=== PATIENT | male | born 1970 | race Caucasian/White ===

== ENCOUNTER 2021-02-01 10:26 | Outpatient (CLI) | payer OTHER, SELFPAY | END 2021-02-01 10:27 | disposition home or self-care (01) | LOC: ANHCOVIDVC 10:26 | PROVIDERS: PCP Family Medicine | DX: Z23 Encounter for immunization (principal) | CPT/HCPCS: 0001A; 91300 ==

== ENCOUNTER 2021-02-22 10:25 | Outpatient (CLI) | payer OTHER, SELFPAY | END 2021-02-22 10:26 | LOC: ANHCOVIDVC 10:26 | PROVIDERS: PCP Family Medicine | DX: Z23 Encounter for immunization (principal) | CPT/HCPCS: 0002A; 91300 ==

== ENCOUNTER → 2021-03-31 13:32 | Outpatient (CLI) | payer OTHER, SELFPAY ==
--- NOTE | ~2021-03-31 | CT_ITS ---
EXAMINATION: CT abdomen pelvis w con DATE: 03/31/2021 13:57 INDICATION: Left abdominal pain. Weight loss. TECHNIQUE: Computed tomography (CT) of the abdomen and pelvis was performed with 100 mL Omnipaque 350 intravenous contrast. Automated exposure control and iterative reconstruction technique were employe d. The dose-length product was 230.21 mGy-cm. COMPARISON: CT abdomen 11/12/2014 FINDINGS: The visualized portions of the lung bases demonstrate minimal atelectasis. No pleural effus ion. The heart size is normal. No pericardial effusion. There are changes of fundoplication of the st omach. There are cysts in the liver measuring up to 5 mm. The gallbladder, spleen, pancreas, adrenal glands, and kidneys are normal. There are no dilated loops of bowel. The appendix is not visualized. There are no pathologically enlarged lymph nodes. There is no free intraperitoneal fluid. There is mo derate lumbar spondylosis. IMPRESSION: 1. No specific etiology for the patient's symptoms. Reviewed, dictated and finalized at location A.
== END ==
PROVIDERS: PCP Family Medicine; Visit Provider Physician Assistant
DX: R10.9 Unspecified abdominal pain (principal); R63.4 Abnormal weight loss
CPT/HCPCS: 74177; Q9967

== ENCOUNTER → 2021-04-10 12:58 | Outpatient (CLI) | payer OTHER, SELFPAY ==
--- NOTE | ~2021-04-10 | CT_ITS ---
EXAMINATION: CT soft tissue neck w con EXAM DATE: 04/10/2021 13:26 INDICATION: R63.4 - Abnormal weight loss, localized enlarged lymph nodes. Prior esophageal surgery. A bnormal weight loss. No known history of cancer. TECHNIQUE: Spiral CT of the neck was performed following intravenous injection of 75 mL Omnipaque 350 . Axial, coronal and sagittal images were reviewed. The dose-length product (DLP) for this examinat ion was 416.56 mGy-cm. The exposure was tailored according to patient size (auto mA exposure control ), and iterative reconstruction (ASIR) was used as additional dose reduction technique. There is no prior study for comparison. FINDINGS: The thyroid gland is unremarkable. The submandibular and parotid glands are symmetric. There is no cervical lymphadenopathy. There are no masses identified. The superior mediastinum is unremarkable. The airway is unremarkable. Parapharyngeal and pre-glottic fat planes are preserve d. Mild to moderate bilateral carotid bulb arterial sclerosis with no stenosis. The orbits are unr emarkable. Visualized sinuses and mastoid air cells are well aerated. Lung apices are clear. onl y mild cervical spondylosis. IMPRESSION: No cervical lymphadenopathy or mass. Reviewed, dictated and finalized at location B.
== END ==
PROVIDERS: PCP Family Medicine; Visit Provider Physician Assistant
DX: R59.0 Localized enlarged lymph nodes (principal); R63.4 Abnormal weight loss
CPT/HCPCS: 70491; Q9967

== ENCOUNTER 2021-10-13 00:19 | Day surgery (SDC) | payer OTHER, SELFPAY ==
[2021-10-04 13:49] VITALS: BMI 22.1
--- NOTE | 2021-10-12 13:43 | PM.HPGS ---
History of Present Illness History of Present Illness Consent: Risks, benefits, and alternatives have been discussed and questions answered. Patient agrees to proceed with procedure. Chief complaint: neoplasm screening Narrative: Vinicius Fernandez is a 51 year old male referred for colon cancer screening Review of Systems Review of Systems: All systems reviewed & are unremarkable except as noted in HPI and below PMFSH Family History Family History Mother Family history of malignant neoplasm of breast in first degree relative Social History Social History Smoking status: Never smoker Second hand tobacco smoke exposure: No Alcohol intake: never Substance use: never Living arrangements: alone Gender identity (if verbalized by the patient): Male Spiritual care concerns: No Meds Home Medications and Allergies Home Medications Medication Instructions Recorded Confirmed Type amlodipine 5 mg tablet 2.5 mg PO DAILY 12/08/19 10/13/21 History levetiracetam 500 mg tablet 500 mg PO DAILY tablet 03/24/21 10/13/21 History rosuvastatin 40 mg PO DAILY 10/04/21 10/13/21 History Allergies Allergy/AdvReac Type Severity Reaction Status Date / Time Tetanus Vaccines and Toxoid Allergy Unknown unk Verified 10/13/21 07:18 Exam Resp: Auscultation: clear to auscultation bilaterally Cardio: Rate: regular rate Rhythm: regular rhythm GI: GI Palp: Yes Soft to palpation and No Tenderness to palpation present (GI) Assessment and Plan Assessment and plan (1) Colon cancer screening: Code(s): Z12.11 - Encounter for screening for malignant neoplasm of colon Status: Acute Assessment and Plan: Colonoscopy with possible biopsy or polypectomy or cautery or injection of substances.
[2021-10-13 07:19] VITALS: BP 137/89; PULSE 85; RESP 17; TEMP 37.3; O2SAT 100; BMI 20.3
[2021-10-13] MEDS: LACTATED RINGERS 1,000 ML 150 ML IV CONT (07:24)
--- NOTE | 2021-10-13 07:54 | P.PNAN_ITS ---
Anes - Initial Pre Proc Eval Procedure: Operation Date: 10/13/21 08:30 Proposed Procedures p Screening Colonoscopy - James Goldman MD Date/Time: 10/13/21 07:54 Surgeon: James Goldman MD Pre Op Diagnosis: neoplasm screening Patient Data Age: 51 Gender: M Height: 1.7 m Weight: 58.9 kg Last Vital Signs Temp 37.3 C 10/13/21 07:19 Pulse 85 10/13/21 07:19 Resp 17 10/13/21 07:19 BP 137/89 10/13/21 07:19 Pulse Ox 100 10/13/21 07:19 Allergies Allergy/AdvReac Type Severity Reaction Status Date / Time Tetanus Vaccines and Toxoid Allergy Unknown unk Verified 10/13/21 07:18 Home Medications Medication Instructions Recorded Confirmed Type amlodipine 5 mg tablet 2.5 mg PO DAILY 12/08/19 10/13/21 History levetiracetam 500 mg tablet 500 mg PO DAILY tablet 03/24/21 10/13/21 History rosuvastatin 40 mg PO DAILY 10/04/21 10/13/21 History Patient hx anesthesia problems: none Family hx anesthesia problems: none Results Review: All pre-operative results and documents have been reviewed as part of the pre-operative evaluation. [facility], [facility] Family History Family History Mother Family history of malignant neoplasm of breast in first degree relative Social History Social History Smoking status: Never smoker Second hand tobacco smoke exposure: No Alcohol intake: never Substance use: never Living arrangements: alone Gender identity (if verbalized by the patient): Male Spiritual care concerns: No Anes - Eval Final PreProcedure Day of Procedure 10/13/21 07:54 Patient weight: normal Heart: regular rate and rhythm Lungs: clear to auscultation Airway: Mallampati scale class II Neurological: alert and oriented Last oral intake: >/= 8 hours ASA classification: III Emergent: no Anesthetic plan: proceed Anesthesia type and monitoring: general GIVS and standard monitoring Results Review: All pre-operative results and documents have been reviewed as part of the pre-operative evaluation. Informed Consent: The patient's anesthetic plan and its attendant risks and benefits were discussed with the patient/family/POA. Questions were solicited and answers provided to the satisfaction of the patient/family/POA.
[2021-10-13] MEDS: SIMETHICONE ORAL SUSPENSION 20 MG/0.3 ML 30 ML BOTTLE 0.6 ML IRRIGATION (08:23)
[2021-10-13 08:34] VITALS: BP 96/73; PULSE 77; RESP 18; O2SAT 97
[2021-10-13 08:44] VITALS: BP 99/72; PULSE 75; RESP 16; O2SAT 98
[2021-10-13 08:54] VITALS: BP 114/87; PULSE 80; RESP 20; O2SAT 98
== END 2021-10-13 09:02 | disposition home or self-care (01) ==
PROVIDERS: PCP Family Medicine; Visit Provider Internal Medicine Gastroenterology
PROC: 0DJD8ZZ Inspection of Lower Intestinal Tract, Via Natural or Artificial Opening Endoscopic (ICD-10-PCS; CPT 45378; principal; 2021-10-13 08:30)
DX: Z12.11 Encounter for screening for malignant neoplasm of colon (principal); K64.8 Other hemorrhoids
CPT/HCPCS: 45378; J2001; J2704; J7120

== ENCOUNTER → 2021-12-05 14:37 | Outpatient (CLI) | payer OTHER, SELFPAY ==
--- NOTE | ~2021-12-05 | CT_ITS ---
EXAMINATION: CT abdomen pelvis wo con EXAM DATE: 12/05/2021 14:51 INDICATION: R10.9 - Unspecified abdominal pain . Bilateral flank pain, nausea, microhematuria. Histor y kidney stones, fundoplication. TECHNIQUE: Spiral CT of the abdomen and pelvis was performed without contrast. Axial, coronal and s agittal images of the abdomen and pelvis were reviewed. The dose-length product (DLP) for this exami nation was 231.35 mGy-cm. The exposure was tailored according to patient size (auto mA exposure cont rol), and iterative reconstruction (ASIR) was used as additional dose reduction technique. Comparison is made to prior examination from 03/31/2021. FINDINGS: The liver, spleen, adrenal glands and pancreas are unremarkable. Gallbladder is unremarkab le. No biliary obstruction. There is no nephrolithiasis or hydronephrosis. There is mild prostat omegaly. The bladder is unremarkable. There is no retroperitoneal or pelvic lymphadenopathy. There is mild scattered arteriosclerotic disease. There are no findings to suggest appendicitis. Fundoplication. There is expected amount of colonic stool. No free intraperitoneal gas. The heart is normal in size. There are no pericardial or ple ural effusions. The lung bases are unremarkable. There are no osteoblastic or osteolytic lesions id entified. IMPRESSION: 1. No acute intra-abdominal findings. 2. Mild prostatomegaly. Reviewed, dictated and finalized at location B. UCTION COUNTER
== END ==
PROVIDERS: PCP Family Medicine; Visit Provider Nurse Practitioner Family
DX: R31.9 Hematuria, unspecified (principal); R10.9 Unspecified abdominal pain; Z87.442 Personal history of urinary calculi; N40.0 Benign prostatic hyperplasia without lower urinary tract symptoms
CPT/HCPCS: 74176

== ENCOUNTER 2022-04-16 08:47 | Outpatient (CLI) | payer OTHER, SELFPAY ==
--- NOTE | 2022-04-16 08:54 | ECG_ITS ---
Measurements Intervals [place] Rate: 60 P: 67 NC: 179 QRS: 28 QRSD: 86 T: 22 QT: 379 QTc: 381 Interpretive Statements SINUS RHYTHM RSR' IN V1/V2 BASELINE ARTIFACT BORDERLINE ECG NO PREVIOUS ECG AVAILABLE FOR COMPARISON Electronically Signed On 04-16-2022 14:32:40 CDT by Chetan Armendariz M.D.
== END 2022-04-16 08:48 | disposition home or self-care (01) ==
PROVIDERS: PCP Family Medicine; Visit Provider Otolaryngology
DX: Z01.818 Encounter for other preprocedural examination (principal); E78.00 Pure hypercholesterolemia, unspecified
CPT/HCPCS: 93005

== ENCOUNTER 2022-04-19 01:06 | Day surgery (SDC) | payer OTHER, SELFPAY ==
[2022-04-12 12:15] VITALS: BMI 22.8
--- NOTE | 2022-04-12 12:19 | PC.NURSE ---
Report to the Outpatient Waiting Room, entrance under the green pavilion located off [facility], at time _0600_ on date _04-19-22_. OR Time: _0745_. - You and your visitor will be asked a series of questions to screen for COVID 19 for your protection. - Only one visitor is allowed at this time. - The patient visitor is requested to leave or wait in car when not with patient. - A mask is required within the hospital. Patients may have clear liquids (water, carbonated beverages, clear teas, apple juice) until 3 hours prior to surgery with a maximum of 20 ounces. - No food from midnight until time of surgery Take the following medications with a SIP of water the morning of surgery: ___Keppra, Flonase and Azestaline Medications to discontinue per physician Patient holding asprin 5 days per office instructions.____ Date to take last dose Please no make-up, nail irish, hairspray, perfume, deodorant, or body powder the day of surgery. No jewelry (including any body piercings) or valuables the day of surgery, leave them at home. Please take a shower or bath the night before, or the morning of, surgery with an antibacterial soap. Wear comfortable, loose fitting clothing. Children are encouraged to wear pajamas. - Jewelry must be removed prior to entering the operating room. Rings and piercings that are not removed may be cut off. - The hospital will not accept responsibility for valuables. - Please leave all valuables, including medications, at home the day of surgery. If you are going home after surgery, a licensed semi driver must drive you home. - NO public transportation without another adult. - We recommend that an adult stay with you for 24 hours following discharge. - We also recommend that you do not drive, make important decision, drink alcoholic beverages, or take any drugs that were not prescribed by your health care provider for at least 24 hours after your discharge time. Follow any additional instructions given to you from your surgeon. If you or anyone in your household have experienced Covid symptoms in the past week, please notify your surgeon or the nurse liaison at the phone number below for possible testing. Telephone instructions given to __Patient and asked if any additional questions and then verbalized understanding. Patient advised to call surgeon office or pre surgery nurse liaison [phone] if any additional questions.
--- NOTE | 2022-04-16 06:36 | PM.HPGS ---
History of Present Illness History of Present Illness Consent: Risks, benefits, and alternatives have been discussed and questions answered. Patient agrees to proceed with procedure. Chief complaint: nasal septal deviation Narrative: Vinicius Fernandez is a 52 year old male long history of left-sided nasal obstruction with a deviated septum unresponsive to medical management Review of Systems Review of Systems: All systems reviewed & are unremarkable except as noted in HPI and below PMFSH Family History Family History Mother Family history of malignant neoplasm of breast in first degree relative Social History Social History Smoking status: Never smoker Second hand tobacco smoke exposure: No Alcohol intake: never Substance use: never Gender identity (if verbalized by the patient): Male Spiritual care concerns: No Comments social family medical all unremarkable Meds Home Medications and Allergies Home Medications Medication Instructions Recorded Confirmed Type levetiracetam 500 mg tablet 500 mg PO BID seizure 03/24/21 04/12/22 History (Keppra) rosuvastatin 40 mg tablet 40 mg PO DAILY 10/04/21 04/12/22 History azelastine 137 mcg (0.1 %) nasal 1 spray intranasal Q12H #30 mL 02/06/22 04/12/22 Rx spray aerosol fluticasone propionate 50 See Rx Instructions .Route 03/07/22 04/12/22 Rx mcg/actuation nasal .COMPLEX #16 grams spray,suspension aspirin 81 mg tablet 81 mg PO DAILY 03/22/22 04/12/22 History Allergies Allergy/AdvReac Type Severity Reaction Status Date / Time Tetanus Vaccines and Toxoid Allergy Unknown unk Verified 04/12/22 12:14 Exam Narrative: chest clear heart without murmurs abdomen soft. Nose septum deviated to the left with obstruction Assessment and Plan Assessment and plan (1) Deviated septum: Code(s): J34.2 - Deviated nasal septum Status: Acute Plan plan septoplasty
--- NOTE | 2022-04-19 06:28 | WPDHPUPDATE1 ---
History and Physical Update Update Date/Time: 04/19/22 06:28 History and Physical has been reviewed, including an updated exam of the patient. There are NO changes in the patient's condition. Risks, benefits, and alternatives have been discussed and questions answered. Patient agrees to proceed with procedure.
--- NOTE | 2022-04-19 07:41 | WPDANESEPPF ---
Anes - Initial Pre Proc Eval Procedure: Operation Date: 04/19/22 09:00 Proposed Procedures p Septoplasty - Jensen Flores MD Date/Time: 04/19/22 07:41 Surgeon: Jensen Flores MD Pre Op Diagnosis: nasal septal deviation Patient Data Age: 52 Gender: M Height: 1.7 m Weight: 66 kg Allergies Allergy/AdvReac Type Severity Reaction Status Date / Time Tetanus Vaccines and Toxoid Allergy Unknown unk Verified 04/12/22 12:14 Home Medications Medication Instructions Recorded Confirmed Type levetiracetam 500 mg tablet 500 mg PO BID seizure 03/24/21 04/12/22 History (Keppra) rosuvastatin 40 mg tablet 40 mg PO DAILY 10/04/21 04/12/22 History azelastine 137 mcg (0.1 %) nasal 1 spray intranasal Q12H #30 mL 02/06/22 04/12/22 Rx spray aerosol fluticasone propionate 50 See Rx Instructions .Route 03/07/22 04/12/22 Rx mcg/actuation nasal .COMPLEX #16 grams spray,suspension aspirin 81 mg tablet 81 mg PO DAILY 03/22/22 04/12/22 History Patient hx anesthesia problems: none Family hx anesthesia problems: none Results Review: All pre-operative results and documents have been reviewed as part of the pre-operative evaluation. [facility] Family History Family History Mother Family history of malignant neoplasm of breast in first degree relative Social History Social History Smoking status: Never smoker Second hand tobacco smoke exposure: No Alcohol intake: never Substance use: never Living arrangements: alone Gender identity (if verbalized by the patient): Male Spiritual care concerns: No Anes - Eval Final PreProcedure Day of Procedure 04/19/22 07:41 Patient weight: normal Heart: regular rate and rhythm Lungs: clear to auscultation Airway: Mallampati scale class II Neurological: alert and oriented Last oral intake: >/= 8 hours ASA classification: III Emergent: no Anesthetic plan: proceed Anesthesia type and monitoring: general ETT and standard monitoring Results Review: All pre-operative results and documents have been reviewed as part of the pre-operative evaluation. Informed Consent: The patient's anesthetic plan and its attendant risks and benefits were discussed with the patient/family/POA. Questions were solicited and answers provided to the satisfaction of the patient/family/POA.
[2022-04-19] MEDS: ACETAMINOPHEN 500 MG TABLET 1000 MG PO (07:42)
[2022-04-19] MEDS: LACTATED RINGERS 1,000 ML 30 ML IV CONT (07:45)
[2022-04-19 08:30] VITALS: BP 119/75; PULSE 69; RESP 18; TEMP 36.3; O2SAT 99
[2022-04-19] MEDS: LIDO 1%/EPINEPHRINE/PF 1:200,000 30 ML VIAL 5 ML XX (09:10)
[2022-04-19] MEDS: COCAINE HCL (*CRX) 4% TOP SOLN 4 ML VIAL 1 APPLIC TOPICAL (09:11)
--- NOTE | 2022-04-19 09:30 | W.PM.PROC2 ---
Procedure Note - Detailed Date of Procedure 04/19/22 Pre-op Diagnosis nasal septal deviation Post-op Diagnosis Same Procedure Performed Septoplasty Surgeon Jensen Flores MD Description of Procedure Patient was prepped draped in fashion anesthesia then was packed with Afrin cup 4% cocaine impregnated cottonoids injected with xylocaine with adrenaline a right hemitransection was made left anterior and posterior tunnels elevated the bony cartilaginous junction right posterior elevated the swelling the cartilage bony rims the midline incision closed with 4-0 chromic Hope splints sutured in with 2-0 silk patient awakened returned to recovery in good condition
[2022-04-19 09:37] VITALS: BP 108/66; PULSE 68; RESP 14; TEMP 36.4; O2SAT 100
[2022-04-19 09:52] VITALS: BP 135/83; PULSE 86; RESP 16; O2SAT 100
--- NOTE | 2022-04-19 09:55 | SUR.PHASEI ---
oral airway removed at 0944
[2022-04-19 10:07] VITALS: BP 113/86; PULSE 85; RESP 20; O2SAT 100
[2022-04-19 10:16] VITALS: BP 125/88; PULSE 73; RESP 16; O2SAT 100
[2022-04-19 10:25] VITALS: BP 123/75; PULSE 69; RESP 16
== END 2022-04-19 11:10 | disposition home or self-care (01) ==
PROVIDERS: PCP Family Medicine; Visit Provider Otolaryngology
PROC: (CPT 30520; principal; 2022-04-19 09:00)
DX: J34.2 Deviated nasal septum (principal); Z79.82 Long term (current) use of aspirin
CPT/HCPCS: 30520; 93005; A9270; J0330; J1100; J2250; J2405; J2704; J3010; J7120

== ENCOUNTER 2022-09-26 08:15 | Outpatient (CLI) | payer OTHER, SELFPAY ==
--- NOTE | ~2022-09-26 | XR_ITS ---
XR shoulder LT min 2V 09/26/2022 08:35 INDICATION: Left shoulder pain PROCEDURE: 4 Views left shoulder COMPARISON: No prior studies for comparison. FINDINGS: Fracture, dislocation or subluxation is not identified. The soft tissues appear within norm al limits. No foreign bodies are identified. IMPRESSION: 1: NO ACUTE BONE OR JOINT ABNORMALITY IDENTIFIED. Reviewed, dictated and finalized at location A. NERSHIP MANAGER
== END 2022-09-26 08:16 | disposition home or self-care (01) ==
PROVIDERS: PCP Family Medicine; Visit Provider Physician Assistant
DX: S49.92XA Unspecified injury of left shoulder and upper arm, initial encounter (principal); M25.512 Pain in left shoulder
CPT/HCPCS: 73030

== ENCOUNTER → 2022-12-27 08:00 | Outpatient (CLI) | payer OTHER, SELFPAY ==
--- NOTE | ~2022-12-27 | XR_ITS ---
XR hand RT min 3V 12/27/2022 08:17 INDICATION: Right hand pain PROCEDURE: 3 views right hand COMPARISON: No prior studies for comparison. FINDINGS: Fracture, dislocation or subluxation is not identified. The soft tissues appear within norm al limits. No foreign bodies are identified. IMPRESSION: 1: NO ACUTE BONE OR JOINT ABNORMALITY IDENTIFIED. Reviewed, dictated and finalized at location L. N COMMODITY MANAGER
== END ==
PROVIDERS: PCP Family Medicine; Visit Provider Physician Assistant
DX: M79.641 Pain in right hand (principal)
CPT/HCPCS: 73130

== ENCOUNTER → 2023-01-03 10:30 | Outpatient (CLI) | payer OTHER, SELFPAY ==
--- NOTE | ~2023-01-03 | CT_ITS ---
Non-contrast Head CT History: Head injury Technique: Axial non-contrast imaging of the brain was performed. Dose reduction technique was used on this scan by utilizing automated exposure control and iterative reconstruction technique. The dose -length product (DLP) was 599.57 mGy-cm. Findings: There is no evidence of intracranial hemorrhage, mass lesion, or acute infarct. Brain par enchyma appears normal. The ventricles and subarachnoid spaces are normal in size. The calvarium ap pears normal. The visualized paranasal sinuses and mastoid air cells are clear. Impression: No significant abnormality seen. Reviewed, dictated and finalized at [facility]. ER SEAMER Impression: No significant abnormality seen.
== END ==
PROVIDERS: PCP Family Medicine; Visit Provider Physician Assistant
DX: G40.909 Epilepsy, unspecified, not intractable, without status epilepticus (principal); R40.20 Unspecified coma; S09.90XA Unspecified injury of head, initial encounter
CPT/HCPCS: 70450

== ENCOUNTER → 2023-01-18 08:02 | Outpatient (CLI) | payer OTHER, SELFPAY ==
--- NOTE | ~2023-01-18 | MR_ITS ---
MRI of the left shoulder Technique: Axial proton-density fat-sat images, coronal proton density fat-sat and T2 fat-sat images, and sagittal T1-weighted and T2 fat-sat images were acquired. Clinical History: Pain Findings: There is [id number] AC joint degenerative change. No subacromial spur present. Coraco clavicular, coracoacromial, coracohumeral ligaments are intact. There is probable focal very low-grade articular surface partial tear at the distal supraspinatus ten don insertion, measuring approximately 3 mm. There is mild supraspinatus and infraspinatus tendinosis . Subscapularis tendon is minimal tendinosis. Tendon of the long head of the biceps is intact. No labral tear identified. Inferior glenohumeral ligament is mildly thickened and hyperintense. There is no degenerative change of the glenohumeral joint. Minimal joint effusion present. No fluid distention of the subacromial/sub deltoid bursa. No muscle atrophy or edema. Impression: Thickening and hyperintense signal of the inferior glenohumeral ligament raises the possibility of ad hesive capsulitis. Correlate clinically. 3 mm focal very low-grade articular surface partial tear of the distal supraspinatus tendon insertion . Reviewed, dictated and finalized at [facility]. Impression: Thickening and hyperintense signal of the inferior glenohumeral ligament raises the possibility of adhesive capsulitis. Correlate clinically. 3 mm focal very low-grade articular surface partial tear of the distal supraspi natus tendon insertion.
== END ==
PROVIDERS: PCP Family Medicine; Visit Provider Physician Assistant Surgical
DX: M25.512 Pain in left shoulder (principal); S46.812A Strain of other muscles, fascia and tendons at shoulder and upper arm level, left arm, initial encounter
CPT/HCPCS: 73221

== ENCOUNTER 2023-04-02 00:37 | Day surgery (SDC) | payer OTHER, SELFPAY ==
[2023-03-27 14:36] VITALS: BMI 20.3
--- NOTE | 2023-03-27 14:53 | PC.NURSE ---
Report to the Outpatient Waiting Room, entrance under the green pavilion located off [facility], at 0800 on 04/02/23. Planned Procedure Time: 1000. Time changes happen often and if your time is changed the preop area will call you the afternoon before. - You and your visitor will be asked to self-screen and do not enter if you have any COVID symptoms. - A mask is optional within the hospital at this time. Patients may have clear liquids (water, carbonated beverages, clear teas, apple juice) until 3 hours prior to surgery with a maximum of 20 ounces. - No food from midnight until time of surgery Take the following medications with a SIP of water the morning of surgery: Keppra/Amlodipine DO NOT STOP ANY OF YOUR OTHER PRESCRIPTION MEDICATIONS PRIOR TO SURGERY ?EXCEPT THE FOLLOWING Medications to discontinue per physician Aspirin 7 days prior to surgery Please no make-up, nail equatorial guinean, hairspray, perfume, deodorant, or body powder the day of surgery. No jewelry (including any body piercings) or valuables the day of surgery, leave them at home. Please take a shower or bath the night before, or the morning of, surgery with an antibacterial soap. Wear comfortable, loose fitting clothing. - Jewelry must be removed prior to entering the operating room. Rings and piercings that are not removed may be cut off. - The hospital will not accept responsibility for valuables. - Please leave all valuables, including medications, at home the day of surgery. If you are going home after surgery, a licensed bus driver supervisor must drive you home. - NO public transportation without another adult if you receive anesthesia. - We recommend that an adult stay with you for 24 hours following discharge. - We also recommend that you do not drive, make important decision, drink alcoholic beverages, or take any drugs that were not prescribed by your health care provider for at least 24 hours after your discharge time. Follow any additional instructions given to you from your surgeon. If you or anyone in your household have experienced Covid symptoms in the past week, please notify your surgeon or the nurse liaison at the phone number below for possible testing. Telephone instructions given to patient and asked if any additional questions and then verbalized understanding. Patient advised to call surgeon office or pre surgery nurse liaison [phone] if any additional questions.
[2023-04-02] VITALS (7 sets, daily range): BP systolic 118–146; BP diastolic 70–91; PULSE 61–89; RESP 10–20; TEMP 36.7; O2SAT 99–100
[2023-04-02] MEDS: ACETAMINOPHEN 500 MG TABLET 1000 MG PO (08:18)
[2023-04-02] MEDS: LACTATED RINGERS 1,000 ML 30 ML IV CONT ×2 (08:35→11:55)
[2023-04-02] MEDS: KETOROLAC 15 MG/ML VIAL (*BKC) IV PUSH (08:40)
--- NOTE | 2023-04-02 09:15 | WPDHPUPDATE1 ---
History and Physical Update Update Date/Time: 04/02/23 09:15 History and Physical has been reviewed, including an updated exam of the patient. There are NO changes in the patient's condition. Risks, benefits, and alternatives have been discussed and questions answered. Patient agrees to proceed with procedure.
--- NOTE | 2023-04-02 09:40 | WPDANESEPPF ---
Anes - Initial Pre Proc Eval Procedure: Operation Date: 04/02/23 10:00 Proposed Procedures p Left Shoulder Arthroscopic, Rotator Cuff Repair with Subacromial Decompression - Jj Guzmán MD Date/Time: 04/02/23 09:40 Surgeon: Jj Guzmán MD Pre Op Diagnosis: lft rot cuff tear, shoulder impingement Patient Data Age: 53 Gender: M Height: 1.7 m Weight: 55.6 kg Allergies Allergy/AdvReac Type Severity Reaction Status Date / Time Tetanus Vaccines and Toxoid Allergy Intermediate arm Verified 03/27/23 14:34 redness/immobility/fever Home Medications Medication Instructions Recorded Confirmed Type levetiracetam 500 mg tablet 500 mg PO BID seizure 03/24/21 04/02/23 History (Keppra) amlodipine 2.5 mg tablet 2.5 mg PO DAILY 10/16/22 04/02/23 History atorvastatin 80 mg tablet 80 mg PO DAILY 10/16/22 04/02/23 History aspirin 81 mg tablet,delayed 81 mg PO DAILY 01/15/23 04/02/23 History release (Adult Low Dose Aspirin) Patient hx anesthesia problems: none Family hx anesthesia problems: none Results Review: All pre-operative results and documents have been reviewed as part of the pre-operative evaluation. [facility] Surgical History Surgical History History of dental surgery History of fundoplication (~1999) History of nasal septoplasty (~03/2022) Family History Family History Mother Family history of malignant neoplasm of breast in first degree relative Social History Social History Smoking status: Never smoker Second hand tobacco smoke exposure: No Alcohol intake: never Substance use: never Lack of Transportation: No Lack of Food: Never True Current Housing: I Have Housing Concerned About Future Housing: No Difficulty Paying Gas/Electric Bills: No Difficulty Paying for Meds: No Currently Unemployed: No Education: Trade/Vocational Certificate Difficulty w/ Childcare or Family Care: No Living arrangements: alone Occupation/Education: occupation Gender identity (if verbalized by the patient): Male Spiritual care concerns: No Anes - Eval Final PreProcedure Day of Procedure 04/02/23 09:40 Patient weight: normal Heart: regular rate and rhythm Lungs: clear to auscultation Airway: Mallampati scale class II Neurological: alert and oriented Last oral intake: >/= 8 hours ASA classification: III Emergent: no Anesthetic plan: proceed Anesthesia type and monitoring: general ETT and standard monitoring Results Review: All pre-operative results and documents have been reviewed as part of the pre-operative evaluation. Informed Consent: The patient's anesthetic plan and its attendant risks and benefits were discussed with the patient/family/POA. Questions were solicited and answers provided to the satisfaction of the patient/family/POA.
--- NOTE | 2023-04-02 10:00 | WPDANESPNB ---
Anes - Peripheral Nerve Block Date/Time: 04/02/23 10:00 I have discussed with the patient/family/POA the placement of a peripheral nerve block for post-operative pain management, including associated risks, benefits, complications, and side effects. Alternative methods of post-operative analgesia were detailed. Questions were solicited and answers provided to the satisfaction of the patient/family/POA. Time-Out: A pre-procedural Time-Out was completed immediately before starting the procedure and confirmed: Patient Identification, Site, Procedure, Patient Position and the Availability of Requisite Equipment. Clinical Indications: Acute post-operative pain management requested by the operative surgeon. Nerve Block Insertion Note Anes-nerve block: interscalene left Patient position: other (sitting) Skin prep: chlorhexidine Needle: 22 gauge, stimulating, insulated echogenic needle. Needle length: 50 mm Technique: nerve stimulation lost at (mA) (0.21) and ultrasound Technique comment: mid2mg [id number] Injectate: bupivacaine 0.5% with epi 5 mcg/ml (30ml no epi) and dexamethasone (mg) (4) Observations: tolerated well Complications: none Procedure start time:: 946 Procedure end time:: 953
[2023-04-02] MEDS: ceFAZolin 2 GM/D5W 50 ML 2 GM/50 ML BAG IVPB (10:01)
[2023-04-02] MEDS: ONDANSETRON INJ 4 MG/2 ML VIAL IV PUSH (12:25)
--- NOTE | 2023-04-02 12:37 | W.PM.PROC2 ---
Procedure Note - Detailed Date of Procedure 04/02/23 Pre-op Diagnosis Partial-thickness rotator cuff tear left shoulder supraspinatus. Impingement syndrome. Post-op Diagnosis Same Procedure Performed Arthroscopic rotator cuff repair and subacromial decompression, left shoulder. Surgeon Jj Guzmán MD Anesthesia General and Regional ( interscalene block) Indications MRI showed a significant intrasubstance partial-thickness tearing of the supraspinatus tendon. Bursitis noted as well. The patient complained of persistent pain with reaching and overhead activities despite conservative treatment. Findings Mild fraying on the bursal surface. The articular rotator cuff appeared normal. No notable soft spots or areas of severely degenerative tendon. Repair performed with the Regeneten tissue implant with for RODRIGO tendon anchors and 2 peek bone anchors. Description of Procedure Preoperative antibiotics were given. An interscalene block was administered in the preoperative area. The patient was bought brought to the operating room. A general anesthetic was administered. The patient was carefully positioned in the beach chair position. The head and neck were carefully positioned. The non operative extremity was also carefully positioned. The shoulder was prepped and draped in the usual sterile fashion. Examination was performed. Standard posterior and anterior arthroscopic portals were established. Inflow achieved with the arthroscopic pump using saline and epinephrine. The glenohumeral joint was carefully inspected. There was mild fraying of the superior lateral labrum but overall stability of the biceps anchor was excellent. Biceps itself also appeared normal. Minimal changes at the subscapularis. Posterior cuff and axillary pouch were normal. The articular cartilage was healthy. No significant synovitis. The articular rotator cuff appeared normal.. Attention was turned to the subacromial space. The bursa was somewhat prolific. A complete bursectomy was performed. The rotator cuff looked quite good and felt good with palpation despite only minimal fraying along the posterior aspect. There was some evidence of impingement with a fairly thick and downsloping acromion. A modest acromioplasty was performed. Due to the significant MRI findings of tendon tearing in the intrasubstance, and the patient's profound symptoms, it was elected to repair the tendon with the Regeneten collagen tissue implant using 5 RODRIGO tendon anchors and 2 peek bone anchors. The arthroscopic instruments were removed. The wounds were closed with 3-0 Monocryl subcuticular suture and steri strips. There were no complications. A sling was applied and the patient brought to the recovery room. Implants [employer] Regeneten implant, 5 RODRIGO tendon anchors, 2 peek bone anchors. Estimated Blood Loss -10.0 Pathology None sent Complications No immediate complications Condition Stable Disposition PACU [facility] Billing Surgery - Charge Forward: Surgery Billing
== END 2023-04-02 13:45 | disposition home or self-care (01) ==
PROVIDERS: PCP Family Medicine; Visit Provider Orthopaedic Surgery
PROC: (CPT 29805; principal; 2023-04-02 10:00)
DX: M75.110 Incomplete rotator cuff tear or rupture of unspecified shoulder, not specified as traumatic (principal); M75.42 Impingement syndrome of left shoulder; M75.52 Bursitis of left shoulder; G89.18 Other acute postprocedural pain
CPT/HCPCS: 29827; 29826; 64415; A4565; A9270; C1713; J0171; J0690; J1100; J1170; J1885; J2250; J2370; J2405; J2704; J3010; J7120

== ENCOUNTER → 2023-06-27 13:38 | Outpatient (CLI) | payer OTHER, SELFPAY ==
--- NOTE | ~2023-06-27 | MR_ITS ---
EXAMINATION: MR brain/brain stem wo con DATE: 06/27/2023 14:19 INDICATION: Other amnesia. Epilepsy. TECHNIQUE: Magnetic resonance imaging (MRI) of the brain and brainstem was performed without intraven ous contrast. COMPARISON: Brain MRI 03/15/2018, head CT 01/03/2023 FINDINGS: There are scattered areas of nonspecific increased T2-weighted signal intensity in the cere bral white matter. There is no intracranial hemorrhage, acute infarction, or abnormal intracranial ma ss lesion. The ventricles are normal in size. There is mild mucosal thickening in the ethmoid sinuses . The orbits are normal. The mastoid air cells are normal. IMPRESSION: 1. Mild nonspecific cerebral white matter disease, which likely represents chronic small vessel ische george disease, worsened from 03/15/2018. Reviewed, dictated and finalized at location E. IMPRESSION: 1. Mild nonspecific cerebral white matter disease, which likely represents bacon skin lifter sunshine small vessel ischemic disease, worsened from 03/15/2018.
== END ==
PROVIDERS: PCP Student in an Organized Health Care Education/Training Program; Visit Provider Student in an Organized Health Care Education/Training Program
DX: R90.82 White matter disease, unspecified (principal); R41.3 Other amnesia
CPT/HCPCS: 70551

== ENCOUNTER 2024-10-23 06:39 | Outpatient (CLI) | payer OTHER, SELFPAY ==
--- NOTE | 2024-10-24 12:32 | P.NEURO_ITS ---
Neurology EEG Report General Information Date of Study: 09/23/24 TEST Eeg DIAGNOSIS localization related symptomatic epilepsy CONDITION OF RECORDING awake, drowsy and asleep. EEG NUMBER [id number] CLINICAL HISTORY Patient states, he has grand mal seizures that are fairly well controlled. Bravo s had them for about the last 25 years EEG DESCRIPTION basic resting occipital frequency consists of low-voltage 8 to 10 hertz per 2nd alpha activity admixed with low-voltage 15 to 18 hertz per 2nd beta activity. Good malaika posterior gradient is noted. Hyperventilation produced normal and symmetrical buildup. Photic stimulation produced normal and symmetrical drive. Low-voltage beta alpha and theta activity seen during early phases of sleep with evolution of bilateral symmetrical sleep spindles. Non paroxysmal. Nonfocal. Nonlateralizing. IMPRESSION Normal record during wakefulness ,drowsiness and sleep. Clinical correlation recommended as the EEG can be normal even with the history of seizure disorder.
--- OUTSIDE RECORDS SUMMARY | 2024-10-30 11:54 | XMS_ITS | Encounter Summary ---
Author Organization [facility] Address [address] [address] [place] [address] Care Team Providers Care [employer] Associate Name Role Phone Eleuterio Cisneros MD Primary Care Provider Encounter Details Date Type Department Care Team (Late st Contact Info) Description 10/26/2021 Orders Only [facility] Cardiology [address] [facility] [facility] [address] [place] [id number] Chetan Armendariz MD [address] [facility] [address] [place] [address] Mixed hyperlipidemia (Primary Dx) Social History Tobacco Use Types Packs/Day Years Used Date Smoking Tobacco: Never Smokeless Tobacco: Never Alcohol Use Standard Drinks/Week Comments No 0 (1 standard drink = 0.6 oz pur e alcohol) Sex and Gender Information Value Date Recorded Sex Assigned at Not on file Legal 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 Gender Identity Not on file Sexual Orientation Not on file documented as of this encounter Plan of Treatment Not on file documented as of this encounter Procedures Procedure Name Priority Date/Time Associated Diagnosis Comments POCT LIPID PANEL Routine 10/26/2021 10:3 5 AM MAIL RIDER Mixed hyperlipidemia documented in this encounter Results * POCT lipid panel (10/26/2021 10:35 AM MAIL RIDER) Cholesterol, POC 206 mg/dL HDL, POC 67 mg/dL Triglycerides, POC 63 mg/dL LDL Cholesterol POC 126 mg/dL Chol/HDL Ratio, POC 3.1 Non-HDL Cholesterol, POC 139 mg/dL Capillary blood 10/26/2021 1 0:35 AM MAIL RIDER Chetan Armendariz MD POINT OF CARE TEST ORDER ORTIZ Final Result documented in this encounter Visit Diagnoses Diagnosis Mixed hyperlipidemia- Primary documented in this encounter Care Teams [employer] Associate Relationship Specialty Start Date End Date Eleuterio Cisneros MD [address] [facility] [address] [place] [address] PCP - General 08/01/16 documented as of this encounter
--- OUTSIDE RECORDS SUMMARY | 2024-10-30 11:54 | XMS_ITS | Encounter Summary ---
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 [ 0 - 5 ] mmHg MV Decel Time 183 [ 104 - 258 ] msec Lateral E` 0.17 [ 0.10 - 0.15 ] m/s E` 0.11 m/s E/E` 3 Measurement Value Normal Range MeasurementValue Normal Range 2D/M ModeDoppler - FINDINGS: Interpretation Site: Exam was interpreted at [facility]. Left Ventricle: Normal left ventricular size. Normal global left ventricular systolicfunction. Normal left ventricular diastolic function. Ejection fraction is measured at 64%. Global Longitudinal Strain is -18 %. Right Ventricle: Normal right ventricular size. Left Atrium: The left atrium is normal in size. Right Atrium: The right atrium is normal in size. Atrial Septum: Normal atrial septum. Mitral Valve: Normal appearance of the mitral valve. Aortic Valve: No evidence of hemodynamically significant aortic stenosis by Doppler.Aortic cusps appear mildly sclerotic. Trileaflet aortic valve. Tricuspid Valve: Normal appearance of the tricuspid valve. Pulmonic Valve: Normal appearance of the pulmonic valve. Pericardium: Normal pericardium with no significant pericardial effusion. Aorta: Normal aortic root. IVC: Normal size and normal respiratory collapse consistent with normal rightatrial pressure (<5 mmHg). Pulmonary Artery: Normal pulmonary artery size. CONCLUSIONS: No evidence of hemodynamically significant aortic stenosis by Doppler.Aortic cusps appear mildly sclerotic. Trileaflet aortic valve. Otherwise normal study. 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 [address] [place] [address] PCP - General 08/01/16 documented as of this encounter
--- OUTSIDE RECORDS SUMMARY | 2024-10-30 11:54 | XMS_ITS | Encounter Summary ---
Author Organization [facility] Address [address] [place] [address] Care Team Providers Care Dope House Operator Helper Name Role Phone Eleuterio Cisneros MD Primary Care Provider Encounter Details Date Type Department Care Team (Late st Contact Info) Description 10/01/2022 Telephone [facility] Cardiology [address] [place] [address] Shazia Schaeffer NP [address] [place] [address] Social History Tobacco Use Types Packs/Day Years Used Date Smoking Tobacco: Never Smokeless Tobacco: Never Alcohol Use Standard Drinks/Week Comments No 0 (1 standard drink = 0.6 oz pur e alcohol) Sex and Gender Information Value Date Recorded Sex Assigned at Not on file Legal Sex Male 10:54 PM VACUUM EXTRACTOR OPERATOR Gender Identity Not on file Sexual Orientation Not on file documented as of this encounter Miscellaneous Notes * Telephone Encounter - Shazia Schaeffer NP - 10/02/2022 9:43 AM VACUUM EXTRACTOR OPERATOR Noted UM EXTRACTOR OPERATOR * Addendum Note - Jeremi Lara RN - 10/02/2022 9:29 AM CSTAddended by: JEREMI LARA on: 10/02/2022 09:29 AM Modules accepted: Orders UM EXTRACTOR OPERATOR * Telephone Encounter - Jeremi Lara RN - 10/02/2022 9:26 AM VACUUM EXTRACTOR OPERATOR Spoke with pt, reviewed message from [place]-he verbalized understanding. Pt said he hasnt been taking med very long and would like to cont taking it and giving it a little more time to see if his numbersimprove. He requested to recheck lipid panel in 6-8 weeks and then possibly make an adjustment if there was no improvement. Send orders for lipids to [facility]. Will forward to [place] as FYI UM EXTRACTOR OPERATOR * Telephone Encounter - Jeremi Lara RN - 10/01/2022 3:46 PM VACUUM EXTRACTOR OPERATOR ----- Message from Shazia Schaeffer NP sent at 10/01/2022 9:49 AM VACUUM EXTRACTOR OPERATOR ----- Please call the patient to let him know I received his lipid results. His LDL is still too high at 120. Our goal is to bring it down to 70 or below to reduce his risk of future heart attack. Please confirm that he has been taking atorvastatin 80 mg daily. If he has been taking it regularly, I recommend adding ezetimibe 10 mg daily and recheck another fasting lipid panel in 2 months again (it looks like the patient prefers [facility]). Thank you. LM on reviewing message from [place] and requested callback to discuss. UM EXTRACTOR OPERATOR UM EXTRACTOR OPERATOR UM EXTRACTOR OPERATOR documented in this encounter Plan of Treatment Scheduled Orders Name Type Priority Associated Diagnoses Orde r Schedule Lipid panel Lab Routine Mixed hyperlipidemia Expected: 10/02/2022, Expires: 10/02/2023 documented as of this encounter Visit Diagnoses Diagnosis Mixed hyperlipidemia- Primary documented in this encounter Care Teams Dope House Operator Helper Relationship Specialty Start Date End Date Eleuterio Cisneros MD [address] [facility] [address] [place] [address] PCP - General 08/01/16 documented as of this encounter
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
--- OUTSIDE RECORDS SUMMARY | 2024-10-30 11:54 | XMS_ITS | Encounter Summary ---
Author Organization [facility] Address [address] [place] [address] Care Team Providers Care Radiologic Technologist Chief Name Role Phone Eleuterio Cisneros MD Primary Care Provider Encounter Details Date Type Department Care Team (Late st Contact Info) Description 05/25/2024 Telephone [facility] Cardiology [address] [place] [address] Philip Grady MD [address] [place] [id number] Social History Tobacco Use Types Packs/Day Years Used Date Smoking Tobacco: Never Smokeless Tobacco: Never Alcohol Use Standard Drinks/Week Comments No 0 (1 standard drink = 0.6 oz pur e alcohol) Personal Safety Answer Date Recorded Getting School Help Needed Not on file 12/07 Sex and Gender Information Value Date Recorded Sex Assigned at Not on file Legal Sex Male 10:54 PM TALENT COORDINATOR Gender Identity Not on file Sexual Orientation Not on file documented as of this encounter Miscellaneous Notes * Telephone Encounter - Lissy Dboson MA - 05/25/2024 1:46 PM CDT LM for patient to come in on 06/24/24 at 2:[address] Grady. Patient to call if he cannot make that appointment. Also, left results of echocardiogram that Dr. Grady reviewed from February. * Telephone Encounter - Ba, Christel - 05/25/2024 1:00 PM CDT Pt requesting a call back in regard to scheduling f/u with [facility]K for a sooner date than currently available appt. Contact:[phone] documented in this encounter Plan of Treatment Not on file documented as of this encounter Visit Diagnoses Not on filedocumented in this encounter Care Teams Radiologic Technologist Chief Relationship Specialty Start Date End Date Eleuterio Cisneros MD [address] [facility] [address] [place] [id number] PCP - General 08/01/16 documented as of this encounter
--- OUTSIDE RECORDS SUMMARY | 2024-10-30 11:54 | XMS_ITS | Encounter Summary ---
Author Organization [facility] Address [address] [place] [address] Care Team Providers Care Bonding Agent Name Role Phone Eleuterio Cisneros MD Primary Care Provider Reason for Referral * Cardiology (Routine) - Closed Specialty Diagnoses / Procedures Referred By Contac t Referred To Contact Procedures ECG 12 lead Karol Lee MD [address] [place] [address] Phone: tel: Referral ID Status Reason Start Date Expiration Date Visits Re quested Visits Authorized [id number] Closed 05/04/2022 06/03/2023 1 1 Encounter Details Date Type Department Care Team (Late st Contact Info) Description 05/04/2022 Orders Only [facility] Cardiology [address] [place] [address] Karol Lee MD [address] [place] [address] Social History Tobacco Use Types Packs/Day Years Used Date Smoking Tobacco: Never Smokeless Tobacco: Never Alcohol Use Standard Drinks/Week Comments No 0 (1 standard drink = 0.6 oz pur e alcohol) Sex and Gender Information Value Date Recorded Sex Assigned at Not on file Legal Sex Male 10:54 PM SCARFER OPERATOR Gender Identity Not on file Sexual Orientation Not on file documented as of this encounter Plan of Treatment Not on file documented as of this encounter Procedures Procedure Name Priority Date/Time Associated Diagnosis Comments ECG 12-LEAD Routine 04/16/2022 documented in this encounter Results * ECG 12 lead (04/16/2022) us Historical Provider ECG ORDERABLES Final Res ult documented in this encounter Visit Diagnoses Not on filedocumented in this encounter Care Teams Bonding Agent Relationship Specialty Start Date End Date Eleuterio Cisneros MD [address] [facility] [address] [place] [address] PCP - General 08/01/16 documented as of this encounter
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
--- OUTSIDE RECORDS SUMMARY | 2024-10-30 11:54 | XMS_ITS | Encounter Summary ---
Author Organization [facility] Address [address] [place] [address] Care Team Providers Care Ophthalmic Lens Inspector Name Role Phone Eleuterio Cisneros MD Primary Care Provider Reason for Visit * Reason Onset Date Comments Scheduling Appointments 08/17/2021 AD out o f office on 08/21/21 Encounter Details Date Type Department Care Team (Late st Contact Info) Description 08/17/2021 Telephone [facility] Cardiology [address] [place] [id number] Barbara Burgess MA Scheduling Appointments (AD out of office on 08/21/21) Social History Tobacco Use Types Packs/Day Years Used Date Smoking Tobacco: Never Smokeless Tobacco: Never Alcohol Use Standard Drinks/Week Comments No 0 (1 standard drink = 0.6 oz pur e alcohol) Sex and Gender Information Value Date Recorded Sex Assigned at Not on file 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
--- OUTSIDE RECORDS SUMMARY | 2024-10-30 11:54 | XMS_ITS | Clinical Summary ---
Author Organization [facility] [address] Address [address] [place] [address] Care Team Providers Care Freelance Photographer Name Role Phone Eleuterio Cisneros MD Primary Care Provider Allergies Active Allergy Reactions Criticality Noted Date Comments Tetanus Toxoid Fever Medium 11/09/2014 Medications levETIRAcetam (KEPPRA) 500 mg tablet Take 1 tablet (500 mg total) by mouth 2 (two) times a day 4000 mg a day Active aspirin (ADULT LOW DOSE ASPIRIN) 81 mg enteric coated tablet Take 1 tablet (81 mg total) by mouth daily 9 Active atorvastatin (LIPITOR) 80 mg tabletIndications:M ixed hyperlipidemia Take 1 tablet (80 mg total) by mouth daily 90 tablet 3 3 Active amLODIPine (NORVASC) 2.5 mg tablet Take 1 tablet (2.5 mg total) by mouth daily 90 tablet 3 3 Active Active Problems Problem Noted Date Diagnosed Date Chronic fatigue 03/15/2023 Preoperative cardiovascular examination 03/15/20 23 Statin myopathy 05/03/2022 Mixed hyperlipidemia 10/26/2021 Noncompliance with medication regimen 06/10/2020 Near syncope 08/25/2018 Coronary-myocardial bridge 08/14/2017 Hydrocephalus 02/08/2017 Overview (03/22/2017): Hydrocephalus Coronary artery disease of n ative artery of prairie band heart with stable angina pectoris 08/01/2016 Overview (01/31/2017): Coronary artery disease involving prairie band coronary artery of prairie band heart with other form of angina pectoris Seizure disorder (CMS/HCC) 05/25/2016 Overview (01/31/2017): Seizure disorder Dyspnea on exertion 05/25/2016 Overview (01/31/2017): HERNANDEZ (dyspnea on exertion) Abnormal echocardiography 05/25/2016 Overview (01/31/2017): Abnormal stress electrocardiogram test Exercise-induced angina 05/25/2016 Overview (01/31/2017): Angina effort Gastroesophageal reflux disease 05/25/2016 Overview (01/31/2017): Gastroesophageal reflux disease, esophagitis presence not specified Resolved Problems Problem Noted Date Diagnosed Date Resolved Date Dyslipidemia 08/01/2016 10/26/2021 Overview (01/31/2017): Dyslipidemia Myocardial bridge of coronary artery 08/01/2016 12/09/2023 Overview (01/31/2017): Coronary-myocardial bridge Surgical History Surgery Date Site/Laterality Comments NOSE SURGERY 03/28/2022 - 04/26/2022 [facility] Medical History Medical History Date Comments Coronary artery disease Family History Medical History Relation Name Comments Other Father 2 Alive and well; Relation Name Status Comments Father 1 Alive Father 2 Social History Tobacco Use Types Packs/Day Years Used Date Smoking Tobacco: Never Smokeless Tobacco: Never Tobacco Cessation:Counseling Given: Not Answered Alcohol Use Standard Drinks/Week Comments No 0 (1 standard drink = 0.6 oz pur e alcohol) Personal Safety Answer Date Recorded Getting School Help Needed Not on file 12/07 Sex and Gender Information Value Date Recorded Sex Assigned at Not on file 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[employer] Gender Identity Not on file Sexual Orientation Not on file Obstetrics History Last Filed Vital Signs Vital Sign Reading Time Taken Comments Blood Pressure 100/70 06/24/2024 2:32 PM CDT Pulse 79 06/24/2024 2:32 PM CDT Temperature - - Respiratory Rate - - Oxygen Saturation 97% 06/24/2024 2:32 PM CDT Inhaled Oxygen Concentration - - Weight 57.7 kg (127 lb 4.8 oz) 06/24/2024 2:32 P M CDT Height 170.2 cm (5' 7 ) 06/24/2024 2:32 PM CDT Body Mass Index 19.94 06/24/2024 2:32 PM CDT Plan of Treatment Health Maintenance Due Date Last Done Comments Colon Cancer Screening-Colonoscopy 1970 Depression Screening 1970 Hepatitis C Screening 1970 Prostate Cancer Screening-PSA 1970 Pneumococcal vaccine <65 (1 of 2 - PCV) 01/11/1976 DTaP/Tdap/Td Vaccine (1 - Tdap) 1981 Hepatitis B Screening 01/11/1988 Regular Well Visit/Exam 18-64 01/11/1988 Zoster Vaccine (1 of 2) 01/11/2020 Influenza Vaccine (#1) 2024 Insurance CHOICE PLUS CHOICE PLUS Care Teams Freelance Photographer Relationship Specialty Start Date End Date Eleuterio Cisneros MD [address] [facility] [address] [place] [address] PCP - General 08/01/16
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
--- OUTSIDE RECORDS SUMMARY | 2024-10-30 11:54 | XMS_ITS | Encounter Summary ---
Author Organization [facility] Address [address] [place] [address] Care Team Providers Care Plasterer Stucco Name Role Phone Eleuterio Cisneros MD Primary Care Provider Reason for Visit * Diagnostic Imaging (Routine) - Closed Specialty Diagnoses / Procedures Referred By Contac t Referred To Contact Diagnoses Coronary-myocardial bridge Mixed hyperlipidemia Coronary artery disease of qagan tayagungin artery of qagan tayagungin heart with stable angina pectoris (HCC) Chronic fatigue Preoperative cardiovascular examination Procedures NM MPI SPECT (Rest and/or Stress) Multiple Studies Chetan Armendariz MD Phone: tel: fax: Referral ID Status Reason Start Date Expiration Date Visits Re quested Visits Authorized [id number] Closed 03/15/2023 04/13/2024 1 1 Encounter Details Date Type Department Care Team (Latest Contact Info) Description 04/18/2023 7:45 AM CDT Ancillary Procedure [facility] Cardiology [address] [facility] [address] [place] [address] Coronary-myocardial bridge; Mixed hyperlipidemia; Coronary artery disease of qagan tayagungin artery of qagan tayagungin heart with stable angina pectoris (HCC); Chronic fatigue; Preoperative cardiovascular examination Social History Tobacco Use Types Packs/Day Years Used Date Smoking Tobacco: Never Smokeless Tobacco: Never Alcohol Use Standard Drinks/Week Comments No 0 (1 standard drink = 0.6 oz pur e alcohol) Sex and Gender Information Value Date Recorded Sex Assigned at Not on file 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 Gender Identity Not on file Sexual Orientation Not on file documented as of this encounter Plan of Treatment Not on file documented as of this encounter Procedures Procedure Name Priority Date/Time Associated Diagnosis Comments NM MPI SPECT (REST AND/OR STRESS) MULTIPLE STUDIES Schedule Routine, Read Routine (OP Routine) 04/18/2023 10:34 AM CDT Coronary-myocardial bridge Mixed hyperlipidemia Coronary artery disease of qagan tayagungin artery of qagan tayagungin heart with stable angina pectoris (HCC) Chronic fatigue Preoperative cardiovascular examination documented in this encounter Results * NM MPI SPECT (Rest and/or Stress) Multiple Studies (04/18/2023 10:34 AM CDT) Anatomical Region Laterality Modality Body N/A Nuclear Medicine 04/18/2023 8:22 AM CDT Narrative 04/18/2023 1:00 PM CDT [facility] Cardiology [address] [facility] [address], [place] [address] [address] [facility] [address], [place] [address] P:[phone] P:[phone] MPI Imaging Report Patient Name: VINICIUS FERNANDEZ S : 1970 Study Date: 04/18/2023 8:22:17 AM Gender: M Tech: [facility] Location: [facility] Ref.Provider: CHETAN ARMENDARIZ Height(Cm): 170.2 BSA: Weight(Kg): 55.8 BMI: 19.26Order Provider: CHETAN ARMENDARIZ - Physician: Referring Physician: Dr. Cisneros. HCG Physician: Montez Armendariz M.D. Interpreting Physician: [...] Procedure Note Gato Bernardo MD - 04/18/2023 [facility] Cardiology [address] [facility] [address], [place] [address] [address] [facility] [address], [place] [address] P:[phone] P:[phone] MPI Imaging Report Patient Name: VINICIUS FERNANDEZ SPatient ID: [id number] : [id number] Date: 04/18/2023 8:22:17 AM Gender: MAccession #: [id number] Tech: KIRTI CASTANEDALocation: Yun Ref.Provider: Raji ARMENDARIZ(Cm): 170.2 BSA: Weight(Kg): 55.8 BMI: 19.26Order Provider: CHETAN ARMENDARIZ Physician: Referring Physician: Dr. Cisneros. HCG Physician: Montez Armendariz M.D.Interpreting Physician: Augusto [...] Bernardo MD 2023-04-18 13:00:05 CDT CC: CC: Chetan Armendariz MD [facility] PROCEDURES Final Result documented in this encounter Visit Diagnoses Diagnosis Coronary-myocardial bridge Mixed hyperlipidemia Coronary artery disease of qagan tayagungin artery of qagan tayagungin heart with stable angina pectoris (HCC) Chronic fatigue Other malaise and fatigue Preoperative cardiovascular examination Pre-operative cardiovascular examination documented in this encounter Administered Medications Inactive Administered Medications - up to 3 most recent administrations Medication Order MAR Action Action Date Dose Rate Site tc-99m sestamibi unit dose injection 25.6 millicurie 25.6 millicurie, intravenous, Once in imaging, radiopharmaceutical, Starting on Simi 04/18/23 at 1034, For 1 dose, Indications: Diagnostic RadiographyIndications:Marisol gnostic Radiography Given 04/18/2023 10:40 AM CDT 25.6 millicuries tc-99m sestamibi unit dose injection 8.9 millicurie 8.9 millicurie, intravenous, Once in imaging, radiopharmaceutical, Starting on Simi 04/18/23 at 0811, For 1 dose, Indications: Diagnostic RadiographyIndications:Marisol gnostic Radiography Given 04/18/2023 8:12 AM CDT 8.9 millicuries documented in this encounter Care Teams Plasterer Stucco Relationship Specialty Start Date End Date Eleuterio Cisneros MD [address] [facility] [address] [place] [address] PCP - General 08/01/16 documented as of this encounter
--- OUTSIDE RECORDS SUMMARY | 2024-10-30 11:54 | XMS_ITS | Encounter Summary ---
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 Procedures CT Coronary Fractional Flow [place] Philip Grady MD [address] [place] [address] Phone: tel: fax: [address] [phone] Referral ID Status Reason Start Date Expiration Date Visits Re quested Visits Authorized [id number] Closed 06/24/2024 08/09/2024 1 1 * MRI/CAT/PET Scan (Routine) - Closed Specialty Diagnoses / Procedures Referred By Contac t Referred To Contact Radiology Diagnoses 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 Had echo on 03/09/24. 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 Armendariz. Had echo on 03/09/24. Coronary Artery Disease Hyperlipidemia HPI Vinicius Fernandez is a 54 y.o. male with history of ?nonobstructive CAD, ?myocardial bridge, dyslipidemia, seizure disorder. 06/24/2024 initial evaluation-patient is here to reestablish cardiovascular care. He is former patient of Dr. Armendariz. Patient has history of ? Nonobstructive CAD based on previous notes, actual cath report not available. Patient states that he has been experiencing recurrent episodes of chest discomfort lately, not always related to exertion he denies any significant shortness of breath. No palpitation, dizziness or syncope patient is a nonsmoker, and denies any illicit drugs MEDICAL HISTORY he has a past medical history of Coronary artery disease. he has a past surgical history that includes Nose surgery (03/2022). he Allergies Allergen Reactions Tetanus Toxoid Fever Current Outpatient Medications Medication Sig Dispense Refill amLODIPine (NORVASC) 2.5 mg tablet Take 1 tablet (2.5 mg total) by mouth daily 90 tablet 3 aspirin (ADULT LOW DOSE ASPIRIN) 81 mg enteric coated tablet Take 1 tablet (81 mg total) by mouth daily atorvastatin (LIPITOR) 80 mg tablet Take 1 tablet (80 mg total) by mouth daily 90 tablet 3 levETIRAcetam (KEPPRA) 500 mg tablet Take 1 tablet (500 mg total) by mouth 2 (two) times a day 4000mg a day No current facility-administered medications for this visit. FH- father has ?CAD. he reports that he has never smoked. He has never used smokeless tobacco. No alcohol history on file. Denies tobacco, alcohol illicit drugs. 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 [employer] General ROS: negative for - Fever, chills, fatigue Psychological ROS: negative for - anxiety, depression Ophthalmic ROS: negative for - loss of vision ENT ROS: negative for - sore throat, epistaxis, headaches, nasal congestion Allergy and Immunology ROS: negative for - hives, postnasal drip Hematological and Lymphatic ROS: negative for - overt bleeding problems, bruising Respiratory ROS: negative for - cough, hemoptysis, wheezing Cardiovascular ROS: Positive for recurrent chest discomfort Gastrointestinal ROS: negative for - abdominal pain, nausea/vomiting, hematemesis, blood in the stool Endocrine ROS: negative for - hot flashes, polydipsia/polyuria Musculoskeletal ROS: negative for - joint pain, muscle pain Neurological ROS: negative for - gait disturbance, weakness Dermatological ROS: negative for pruritus, rash LABS AND OTHER DIAGNOSTIC TESTS REVIEWED No results found for: WBC , HGB , HCT , MCV , PLT No lab exists for component: LABALBU No results found for: WBC , HGB , HCT , MCV , PLT Lab Results Component Value Date CHOL 194 09/28/2022 Lab Results Component Value Date HDL 59 09/28/2022 LDL Date Value Ref Range Status 09/28/2022 120 (H) mg/dL (calc) Final Comment: Reference range: <100 Desirable range <100 mg/dL for primary prevention; <70 mg/dL for patients with CHD or diabetic patients with > or = 2 CHD risk factors. LDL-C is now calculated using the Johnny-Ashish calculation, which is a validated novel method providing better accuracy than the Friedewald equation in the estimation of LDL-C. Johnny HOPE et al. BANDAR. 2013;310(19): 1549-5035 (http://education.Zignals/faq/OXC575) ] Lab Results Component Value Date TRIG 49 09/28/2022 Lab Results Component Value Date POCCHOL 172 06/24/2024 POCHDL 54 06/24/2024 POCTRIG 95 06/24/2024 POCLDL 99 06/24/2024 POCNONHDL 118 06/24/2024 POCCHLPL 172 06/24/2024 MPI- Myocardial perfusion imaging is normal. Inferior/inferolateral soft tissue attenuation artifact. Global left ventricular function is normal. Left Ventricular Ejection Fraction is 63 %. 04/18/2023, Dr. Bernardo Echo-normal LV size, LVEF 64%; JL3-18%; aortic valve appears mildly sclerotic, no significant stenosis. Trileaflet valve 03/09/2024; Dr. Parker Lipids-total cholesterol 132, HDL 53, triglycerides 58, LDL 03/15/2023 EKG-sinus rhythm, no significant ST-T abnormality. 12/09/2023 Lipids-total cholesterol 172, HDL 54, triglycerides 95, LDL 99, glucose 140. 06/24/2024 PHYSICAL EXAM Vitals BP 100/70 (BP Location: Right arm, Patient Position: Sitting) Pulse 79 Ht 170.2 cm (5' 7 ) Wt 57.7 kg (127 lb 4.8 oz) SpO2 97% BMI 19.94 kg/m?? General appearance - alert, no distress, oriented to time, place, person Mental status - affect appropriate to mood Eyes - extraocular eye movements intact, no pallor Ears - external ears appear normal, hearing grossly normal Nose - normal and patent, no discharge Mouth - mucous membranes moist, tongue normal Neck - supple, no JVD Chest - clear to auscultation Heart - normal rate, regular rhythm, normal S1, S2 Abdomen - soft, nontender Neurological - alert, oriented, normal speech, no gross motor deficits Musculoskeletal - no major deformity, no amputations Extremities - no pedal edema, no clubbing or cyanosis Skin - no rashes (on the exposed areas), no cyanosis ASSESSMENT Diagnoses and all orders for this visit: Coronary artery disease of [place] artery of [place] heart with stable angina pectoris ([facility]) (Primary) - CTA Heart and Coronary Arteries W Morphology when Performed; Future - POCT lipid panel - CT Coronary Fractional Flow [place]; Future Coronary-myocardial bridge - CTA Heart and Coronary Arteries W Morphology when Performed; Future - CT Coronary Fractional Flow [place]; Future Precordial pain - CTA Heart and Coronary Arteries W Morphology when Performed; Future Seizure disorder ([facility]/HCC) (HCC) PLAN/RECOMMENDATIONS 54 y.o. male with history of ?nonobstructive CAD, ?myocardial bridge, dyslipidemia, seizure disorder. -patient has history of ?nonobstructive CAD with myocardial bridge. He has been experiencing recurrent episode of chest discomfort lately, not always related to exertion. Proceed with coronary CT angiogram plus minus CTA FFR to rule out significant obstructive CAD. Continue aspirin, statin. -follow up with Neurology for management of seizure disorder. -other medical management as per primary care physician. -Counseling was done for heart healthy diet, aerobic exercise as tolerated. -patient may follow up in Cardiology Clinic in 12-[address] angiographic results aregrossly unremarkable, otherwise may follow-up sooner as necessary based on clinical course. -personally reviewed patient's previous medical records including previous notes, diagnostic tests including EKGs etc. My total encounter time on 06/24/24 was 42 minutes which was spent in the activities documented in the note. This includes time spent prior to the visit and after the visit in direct care of the patient. This time does not include time spent in any other separately reportable services. Philip Grady MD 06/24/24 Voice recognition software was used to complete this document, therefore, book publisher variances may occur. 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 Expected: 06/24/2024, Expires: 06/24/2025 documented as of this encounter Procedures Procedure Name Priority Date/Time Associated Diagnosis Comments POCT LIPID PANEL Routine 06/24/2024 3:00 PM CDT Coronary artery disease of [place] artery of [place] heart with stable angina pectoris (HCC) documented in this encounter Results * POCT lipid panel (06/24/2024 3:00 PM CDT) Cholesterol, POC 172 mg/dL Comment:GLU = 140 HDL, POC 54 mg/dL Triglycerides, POC 95 mg/dL LDL Cholesterol POC 99 mg/dL Chol/HDL Ratio, POC 1.8 Non-HDL Cholesterol, POC 118 mg/dL Cholesterol Total, POC 172 mg/dL Capillary blood 06/24/2024 3 :00 PM CDT Philip Grady MD POINT OF CARE TEST ORDERABLES Fi nal Result documented in this encounter Visit Diagnoses Diagnosis Coronary artery disease of [place] artery of [place] heart with stable angina pectoris (HCC)- Primary Coronary-myocardial bridge Precordial pain Seizure disorder (CMS/HCC) (HCC) Unspecified epilepsy without mention of intractable epilepsy documented in this encounter Care Teams Mixer And Scaler Relationship Specialty Start Date End Date Eleuterio Cisneros MD [address] [facility] [address] [place] [address] PCP - General 08/01/16 documented as of this encounter
--- OUTSIDE RECORDS SUMMARY | 2024-10-30 11:54 | XMS_ITS | Encounter Summary ---
Author Organization 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 Referral ID Status Reason Start Date Expiration Date Visits Re quested Visits Authorized [id number] Closed 03/04/2024 04/18/2024 1 1 Encounter Details Date Type Department Care Team (Latest Contact Info) Description 03/09/2024 3:00 PM CDT Ancillary Procedure [facility] Cardiology [address] [facility] [address] [place] [phone] Coronary artery disease of [place] artery of [place] heart with stable angina pectoris (HCC); Coronary-myocardial bridge; Chronic fatigue Social History Tobacco Use Types Packs/Day Years Used Date Smoking Tobacco: Never Smokeless Tobacco: Never Alcohol Use Standard Drinks/Week Comments No 0 (1 standard drink = 0.6 oz pur e alcohol) Personal Safety Answer Date Recorded Getting School Help Needed Not on file 12/07 Sex and Gender Information Value Date Recorded Sex Assigned at Not on file 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 Gender Identity Not on file Sexual Orientation Not on file documented as of this encounter Last Filed Vital Signs Vital Sign Reading Time Taken Comments Blood Pressure 113/83 03/09/2024 3:53 PM CDT Pulse - - Temperature - - Respiratory Rate - - Oxygen Saturation - - Inhaled Oxygen Concentration - - Weight - - Height - - Body Mass Index - - documented in this encounter Plan of Treatment Not on file documented as of this encounter Procedures Procedure Name Priority Date/Time Associated Diagnosis Comments TRANSTHORACIC ECHO (TTE) COMPLETE W DOPPLER/CF WO CONTRAST Routine 03/09/2024 3:53 PM CDT Coronary artery disease of [place] artery of [place] heart with stable angina pectoris (HCC) Coronary-myocardia l bridge Chronic fatigue documented in this encounter Results * TRANSTHORACIC ECHO (TTE) COMPLETE W DOPPLER/CF WO CONTRAST (03/09/2024 3:53 PM CDT) Anatomical Region Laterality Modality Ultrasound 03/09/2024 3:20 PM CDT Narrative 03/09/2024 4:[address] [facility] Cardiology [address] [facility] [address] [place] [address] [address] [facility] [address], [place] [address] P:[phone] P:[phone] Echocardiographic Report Patient Name: VINICIUS FERNANDEZ S : 1970 Study Date: 03/09/2024 3:20:31 PM Gender: M Tech: Location: [facility] Provider: CHETAN ARMENDARIZ ?Height(Cm): 170 BSA: 1.69 Weight(Kg): 60.3 Heart Rate: 69 BP: 113 / 82 Quality: Good Order Provider: CHETAN ARMENDARIZ PROCEDURES: Echocardiographic Report: Transthoracic echocardiogram with [...] FINDINGS: Interpretation Site: Exam was interpreted at [facility]. Left Ventricle: Normal left ventricular size. Normal [...] study. Electronically Signed By: Oswaldo Parker MD, [facility] 2024-03-09 16:47:17 CDT Procedure Note Oswaldo Parker MD - 03/09/2024 [facility] Cardiology [address] [facility] [address] [place] [address] [address] [facility] [address], [place] [address] P:[phone] P:[phone] Echocardiographic Report Patient Name: VINICIUS FERNANDEZ S : 1970 Study Date: 03/09/2024 3:20:31 PM Gender: M Tech: Location: [facility] Provider: CHETAN ARMENDARIZ Height(Cm): 170 BSA: 1.69 Weight(Kg): 60.3 Heart Rate: 69 BP: 113 / 82 Quality: Good Order Provider: CHETAN ARMENDARIZ PROCEDURES: Echocardiographic Report: Transthoracic echocardiogram with [...] FINDINGS: Interpretation Site: Exam was interpreted at [facility]. Left Ventricle: Normal left ventricular size. Normal [...] study. 

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
--- OUTSIDE RECORDS SUMMARY | 2024-10-30 11:54 | XMS_ITS | Encounter Summary ---
Author Organization [facility] Address [address] [facility] [address] [place] [address] Care Team Providers Care Drum Barker Operator Name Role Phone Eleuterio Cisneros MD Primary Care Provider Encounter Details Date Type Department Care Team (Late st Contact Info) Description 10/26/2021 Orders Only [facility] Cardiology [address] [place] [id number] Chetan Armendariz MD [address] [facility] [address] [place] [address] Mixed hyperlipidemia (Primary Dx) Social History Tobacco Use Types Packs/Day Years Used Date Smoking Tobacco: Never Smokeless Tobacco: Never Alcohol Use Standard Drinks/Week Comments No 0 (1 standard drink = 0.6 oz pur e alcohol) Sex and Gender Information Value Date Recorded Sex Assigned at Not on file Legal Sex Male 10:54 PM GRID TRIMMER Gender Identity Not on file Sexual Orientation Not on file documented as of this encounter Plan of Treatment Not on file documented as of this encounter Procedures Procedure Name Priority Date/Time Associated Diagnosis Comments POCT LIPID PANEL Routine 10/26/2021 10:2 3 AM GRID TRIMMER Mixed hyperlipidemia documented in this encounter Results * POCT lipid panel (10/26/2021 10:23 AM GRID TRIMMER) Cholesterol, POC 206 mg/dL HDL, POC 67 mg/dL Triglycerides, POC 63 mg/dL LDL Cholesterol POC 126 mg/dL Chol/HDL Ratio, POC 3.1 Non-HDL Cholesterol, POC 139 mg/dL Capillary blood 10/26/2021 1 0:23 AM GRID TRIMMER Chetan Armendariz MD POINT OF CARE TEST ORDER ORTIZ Final Result documented in this encounter Visit Diagnoses Diagnosis Mixed hyperlipidemia- Primary documented in this encounter Care Teams Drum Barker Operator Relationship Specialty Start Date End Date Eleuterio Cisneros MD [address] [facility] [address] [place] [address] PCP - General 08/01/16 documented as of this encounter
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
--- OUTSIDE RECORDS SUMMARY | 2024-10-30 11:54 | XMS_ITS | Referral Summary ---
Author Organization [facility] [address] Address [address] [place] [address] Care Team Providers Care Chemical Technician Name Role Phone Eleuterio Cisneros MD Primary [...] artery disease of n ative artery of [place] heart with stable angina pectoris 08/01/2016 Overview (01/31/2017): Coronary artery disease involving [place] coronary artery of [place] heart with other form of angina pectoris [...] artery 08/01/2016 12/09/2023 Overview (01/31/2017): Coronary-myocardial bridge Social History Tobacco Use Types Packs/Day Years [...] on file Legal Sex Male 10:54 PM SALES REPRESENTATIVE PRINTING Gender Identity Not on file Sexual Orientation Not on file Last Filed Vital Signs Vital Sign Reading [...] 06/24/2024 2:32 PM CDT Plan of Treatment Not on file Insurance [facility] CHOICE PLUS [facility] CHOICE PLUS Care Teams Chemical Technician Relationship Specialty Start Date End Date Eleuterio Cisneros MD [address] [facility] [address] [place] [address] PCP - General 08/01/16
--- OUTSIDE RECORDS SUMMARY | 2024-10-30 11:55 | XMS_ITS | Encounter Summary ---
Author Organization [facility] Address [address] [place] [address] Care Team Providers Care Entertainer & Comic Name Role Phone Eleuterio Au MD Primary Care Provider Reason for Visit * Reason Comments Follow-up 6 mo follow up on CA D Encounter Details Date Type Department Care Team (Late st Contact Info) Description 08/14/2017 3:15 PM CDT Office Visit [facility] [address] [place] [address] Chetan Armendariz MD [address] [place] [address] Coronary artery disease involving big lagoon coronary artery of big lagoon heart without angina pectoris (Primary Dx); Coronary-myocardial bridge; Dyslipidemia; Seizure disorder (CMS/HCC); Gastroesophageal reflux disease without esophagitis Social History Tobacco Use Types Packs/Day Years Used Date Smoking Tobacco: Never Smokeless Tobacco: Never Alcohol Use Standard Drinks/Week Comments No 0 (1 standard drink = 0.6 oz pur e alcohol) Sex and Gender Information Value Date Recorded Sex Assigned at Not on file 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 Gender Identity Not on file Sexual Orientation Not on file documented as of this encounter Last Filed Vital Signs Vital Sign Reading Time Taken Comments Blood Pressure 112/80 08/14/2017 4:33 PM CDT Pulse 77 08/14/2017 4:33 PM CDT Temperature - - Respiratory Rate - - Oxygen Saturation 98% 08/14/2017 4:33 PM CDT Inhaled Oxygen Concentration - - Weight 65.8 kg (145 lb) 08/14/2017 4:33 PM CDT Height 170.2 cm (5' 7 ) 08/14/2017 4:33 PM CDT Body Mass Index 22.71 08/14/2017 4:33 PM CDT documented in this encounter Ordered Prescriptions Prescription Sig Dispense Quantity Refills Last Filled Start Date End Date atorvastatin (LIPITOR) 40 mg tablet Take 1 tablet (40 mg total) by mouth daily. 90 tablet 3 08/14/2017 12/31/2017 amLODIPine (NORVASC) 2.5 mg tablet Take 1 tablet (2.5 mg total) by mouth daily. 90 tablet 3 08/14/2017 12/31/2017 documented in this encounter Progress Notes * Chetan Armendariz MD - 08/14/2017 3:15 PM CDT [facility] DATE OF VISIT: 08/14/2017 CHIEF COMPLAINT Chief Complaint Patient presents with ??? Follow-up 6 mo follow up on CAD HPI Vinicius Fernandez is a 47 y.o. male with a PMHx of mild [...] changed diet, cut out sugar feeling great. MEDICAL HISTORY Past Medical History: Diagnosis Date ??? Coronary artery disease Social History Substance Use Topics ??? Smoking status: Never Smoker ??? Smokeless tobacco: Never Used ??? Alcohol use No Family History Problem Relation Age of Onset ??? Other Father Alive and well; MEDICATIONS HOME MEDICATIONS : amLODIPine (NORVASC) 2.5 mg tablet aspirin (ASPIRIN LOW DOSE) 81 mg tablet atorvastatin (LIPITOR) 40 mg tablet amLODIPine (NORVASC) 2.5 mg tablet atorvastatin (LIPITOR) 40 mg tablet ALLERGIES No Known Allergies REVIEW OF SYSTEMS Review of Systems Constitution: Positive for weight loss. Negative for decreased appetite, diaphoresis, fever, weakness, malaise/fatigue and night sweats. HENT: Negative for hearing loss and nosebleeds. Eyes: Negative for blurred vision and pain. Cardiovascular: Negative for chest pain, claudication, dyspnea on exertion, irregular heartbeat, leg swelling, near-syncope, orthopnea, palpitations and syncope. Respiratory: Negative for cough, hemoptysis, shortness of breath, snoring and wheezing. Endocrine: Negative for cold intolerance and heat intolerance. Hematologic/Lymphatic: Negative for bleeding problem. Does not bruise/bleed easily. Skin: Negative for color change, itching, rash and suspicious lesions. Musculoskeletal: Positive for joint pain. Negative for falls, muscle weakness and myalgias. Gastrointestinal: Negative for abdominal pain, heartburn, hematemesis, melena and nausea. Genitourinary: Negative for dysuria, hematuria and nocturia. Neurological: Negative for excessive daytime sleepiness, dizziness, focal weakness, headaches, light-headedness and loss of balance. Psychiatric/Behavioral: Negative for altered mental status, depression and memory loss. The patientis not nervous/anxious. Allergic/Immunologic: Negative for environmental allergies. PHYSICAL EXAM Vitals: 08/14/17 1633 BP: 112/80 Pulse: 77 SpO2: 98% Weight: 65.8 kg (145 lb) Height: 170.2 cm (5' 7 ) Body mass index is 22.71 kg/m??. Physical Exam Constitutional: He is oriented to person, place, and time. He appears well- developed and well-nourished. He is cooperative. No distress. HENT: Head: Normocephalic and atraumatic. Right Ear: External ear normal. Left Ear: External ear normal. Nose: Nose normal. Mouth/Throat: Oropharynx is clear and moist and mucous membranes are normal. Normal dentition. Eyes: Conjunctivae, EOM and lids are normal. No scleral icterus. Neck: Normal range of motion. Neck supple. Normal carotid pulses, no hepatojugular reflux and no JVD present. Carotid bruit is not present. No tracheal deviation present. No thyromegaly present. Cardiovascular: Normal rate, regular rhythm, S1 normal, S2 normal, normal heart sounds, intact distal pulses and normal pulses. Exam reveals no gallop, no S3, no S4, no distant heart sounds and no friction rub. No murmur heard. Pulmonary/Chest: Effort normal and breath sounds normal. No respiratory distress. He has no wheezes. He has no rales. He exhibits no tenderness. Abdominal: Soft. Bowel sounds are normal. He exhibits no distension and no mass. There is no tenderness. There is no rebound and no guarding. Musculoskeletal: Normal range of motion. He exhibits no edema, tenderness or deformity. Lymphadenopathy: He has no cervical adenopathy. Neurological: He is alert and oriented to person, place, and time. No cranial nerve deficit. He exhibits normal muscle tone. Coordination normal. Skin: Skin is warm and dry. No ecchymosis, no petechiae and no rash noted. He is not diaphoretic. No cyanosis or erythema. No pallor. Nails show no clubbing. Psychiatric: He has a normal mood and affect. His speech is normal and behavior is normal. Judgmentnormal. LABS AND OTHER DIAGNOSTIC TESTS Office Visit on 08/14/2017 Component Date Value Ref Range Status ??? SCRIBED Cholesterol, Total 02/08/2017 175 na - na Final ??? SCRIBED HDL 02/08/2017 39 na - na Final ??? SCRIBED LDL 02/08/2017 108 na - na Final ??? SCRIBED Triglycerides 02/08/2017 134 na - na Final ??? Cholesterol, POC 08/14/2017 181 mg/dL Final ??? HDL, POC 08/14/2017 45 mg/dL Final ??? Triglycerides, POC 08/14/2017 115 mg/dL Final ??? LDL, Direct, POC 08/14/2017 113 mg/dL Final ??? Chol/HDL Ratio, POC 08/14/2017 4.0 Final ??? Non-HDL Cholesterol, POC 08/14/2017 137 mg/dL Final ??? Cholesterol Total, POC 08/14/2017 181 mg/dL Final Results for orders placed or performed in visit on 08/14/17 Lipid panel Result Value Ref Range SCRIBED Cholesterol, Total 175 na - na SCRIBED HDL 39 na - na SCRIBED LDL 108 na - na SCRIBED Triglycerides 134 na - na POCT lipid panel Result Value Ref Range Cholesterol, POC 181 mg/dL HDL, POC 45 mg/dL Triglycerides, POC 115 mg/dL LDL, Direct, POC 113 mg/dL Chol/HDL Ratio, POC 4.0 Non-HDL Cholesterol, POC 137 mg/dL Cholesterol Total, POC 181 mg/dL Reviewed EKG, Echocardiogram, stress test, and bloodwork/lipids. ASSESSMENT Diagnoses and all orders for this visit: 1. Coronary artery disease involving big lagoon coronary artery of big lagoon heart without angina pectoris(Primary) 2. Coronary-myocardial bridge 3. Dyslipidemia - POCT lipid panel 4. Seizure disorder (CMS/HCC) 5. Gastroesophageal reflux disease without esophagitis Other orders - amLODIPine (NORVASC) 2.5 mg tablet; Take 1 tablet (2.5 mg total) by mouth daily. - atorvastatin (LIPITOR) 40 mg tablet; Take 1 tablet (40 mg total) by mouth daily. PLAN/RECOMMENDATIONS 1. NO anginal sxs. Aggressive CAD risk modification counseling performed. Continue current medical therapy. Notify office immediately with anginal symptoms. 2. BP controlled. Monitor BP on routine basis. Call with readings. Continue consistent cardiovascular exercise, weight loss, medication compliance, and low- sodium diet. 3. Repeat lipid panel in office today. Cont Atorvastatin 4. Lifestyle modification counseling performed. Weight loss, exercise, reduction in caloric intake. 5. Cont antianginals with Amlodipine 6. Minimize caffeine. Over 50% of this visit counseling CAD, HTN, lipids, medications, lifestyle modification. Follow up in the office in 1 year. Thank you for allowing me the privilege of participating in the care this very pleasant patient. Please do not hesitate to contact me with any additional questions or concerns. Montez Armendariz MD, [facility] documented in this encounter Plan of Treatment Not on file documented as of this encounter Procedures Procedure Name Priority Date/Time Associated Diagnosis Comments POCT LIPID PANEL Routine 08/14/2017 5:01 PM CDT Dyslipidemia LIPID PANEL Routine 02/08/2017 3:33 PM CDT documented in this encounter Results * POCT lipid panel (08/14/2017 5:01 PM CDT) Cholesterol, POC 181 mg/dL HDL, POC 45 mg/dL Triglycerides, POC 115 mg/dL LDL Cholesterol POC 113 mg/dL Chol/HDL Ratio, POC 4.0 Non-HDL Cholesterol, POC 137 mg/dL Cholesterol Total, POC 181 mg/dL Blood specimen (specimen) 08/14/2017 5:01 PM CDT us Chetan Armendariz MD POINT OF CARE TEST ORDER ORTIZ Final Result * Lipid panel (02/08/2017 3:33 PM CDT) SCRIBED Cholesterol, Total 175 na - na EXTERNAL LAB SCRIBED HDL 39 na - na EXTERNAL LAB SCRIBED LDL 108 na - na EXTERNAL LAB SCRIBED Triglycerides 134 na - na EXTERNAL LAB Blood specimen (specimen) us Historical Provider LAB BLOOD ORDERABLES Marta torres Result EXTERNAL LAB documented in this encounter Visit Diagnoses Diagnosis Coronary artery disease involving big lagoon coronary artery of big lagoon heart without angina pectoris- Primary Coronary-myocardial bridge Dyslipidemia Other and unspecified hyperlipidemia Seizure disorder (CMS/HCC) (HCC) Unspecified epilepsy without mention of intractable epilepsy Gastroesophageal reflux disease without esophagitis Esophageal reflux documented in this encounter Discontinued Medications Medication Sig Discontinue Reason Start Date End Da te amLODIPine (NORVASC) 2.5 mg tablet take 1 tablet by oral route every day Reorder 08/01/2016 08/14/2017 atorvastatin (LIPITOR) 40 mg tablet take 1 tablet by oral route every day Reorder 08/01/2016 08/14/2017 documented as of this encounter Care Teams Entertainer & Comic Relationship Specialty Start Date End Date Eleuterio Au MD [address] [place] [address] PCP - General 08/01/16 documented as of this encounter
--- OUTSIDE RECORDS SUMMARY | 2024-10-30 11:55 | XMS_ITS | Encounter Summary ---
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
--- OUTSIDE RECORDS SUMMARY | 2024-10-30 11:55 | XMS_ITS | Encounter Summary ---
Author Organization [facility] Address [address] [place] [address] Care Team Providers Care Player Development Manager Name Role Phone Eleuterio Cisneros MD Primary Care Provider Encounter Details Date Type Department Care Team (Late st Contact Info) Description 01/31/2021 Orders Only [facility] Cardiology [address] [place] [address] ProviderKarol MD [address] [place], [place] [id number] Social History Tobacco Use Types Packs/Day Years Used Date Smoking Tobacco: Never Smokeless Tobacco: Never Alcohol Use Standard Drinks/Week Comments No 0 (1 standard drink = 0.6 oz pur e alcohol) Sex and Gender Information Value Date Recorded Sex Assigned at Not on file Legal Sex Male 10:54 PM ROLLER SKATER Gender Identity Not on file Sexual Orientation Not on file documented as of this encounter Plan of Treatment Not on file documented as of this encounter Procedures Procedure Name Priority Date/Time Associated Diagnosis Comments LIPID PANEL Routine 01/18/2021 documented in this encounter Results * (ABNORMAL) Lipid panel (01/18/2021) SCRIBED Cholesterol, Total 213(A) 100 - 199 EXTERNAL LAB SCRIBED HDL 52 40 - 60 EXTERNAL LAB SCRIBED LDL 144(A) 0 - 99 EXTERNAL LAB SCRIBED Triglycerides 72 0 - 149 EXTERNAL LAB Blood specimen (specimen) us Historical Provider LAB BLOOD ORDERABLES Edit ed Result - Final EXTERNAL LAB documented in this encounter Visit Diagnoses Not on filedocumented in this encounter Care Teams Player Development Manager Relationship Specialty Start Date End Date Eleuterio Cisneros MD [address] [place] [address] PCP - General 08/01/16 documented as of this encounter
--- OUTSIDE RECORDS SUMMARY | 2024-10-30 11:55 | XMS_ITS | Encounter Summary ---
Author Organization [facility] Facility Care Team Providers Care Door Manager Name Role Phone Unavailable Primary Care Provider Unavailabl e Encounter Details Date Type Department Care Team (Late st Contact Info) Description 11/19/2012 - 10/27/2013 11:59 PM MANAGER OF SUSTAINABILITY Hospital Encounter [facility] Social History Tobacco Use Types Packs/Day Years Used Date Smoking Tobacco: Never Assessed Sex and Gender Information Value Date Recorded Sex Assigned at Not on file Legal Sex Male 10:54 PM MANAGER OF SUSTAINABILITY Gender Identity Not on file Sexual Orientation Not on file documented as of this encounter Plan of Treatment Not on file documented as of this encounter Procedures Procedure Name Priority Date/Time Associated Diagnosis Comments DISCHARGE LABORATORY CUMULATIVE REPORT Routine 11/20/2012 9:08 AM MANAGER OF SUSTAINABILITY SERUM 25-HYDROXYCHOLECALCI FEROL (VITAMIN D) Routine 11/19/2012 12:15 PM MANAGER OF SUSTAINABILITY documented in this encounter Results * Discharge Laboratory Cumulative Report (11/20/2012 9:08 AM MANAGER OF SUSTAINABILITY) 11/20/2012 9:08 AM MANAGER OF SUSTAINABILITY Narrative HISTORICAL RESULTS - 11/20/2012 9:08 AM MANAGER OF SUSTAINABILITY ? [facility] ? Department of Laboratories ?[facility] [address] [facility] ?[address] ?[place] [address] Patient Name: ? [facility] Rec Number: ?? [id number] Date of : ?1970 Gender/Age: ? Male 42 years Doctor: ? Memo Rosales M.D. Report Date/Time: 11/20/2012 9:08:18 AM ?* Abnormal ??C Critical ??f Footnote ??^ Corrected ??L Low ??H High ?i Interp Data ??@ Reference Lab ?Chart Type: Cumulative ? CHEMISTRY ?Other Chemistry ?11/19/2012 ?12:15:00 Test ?Units ??Reference 25 Hydroxy Vitamin D ??30 ?ng/mL ??30-100 us Historical Provider LAB BLOOD ORDERABLES Marta torres Result HISTORICAL RESULTS * Serum 25-hydroxycholecalciferol (vitamin D) (11/19/2012 12:15 PM MANAGER OF SUSTAINABILITY) 25-OH Vit D 30 30 - 100 ng/ml HISTORICAL RESULTS Serum 11/19/2012 12:1 5 PM MANAGER OF SUSTAINABILITY Memo Rosales MD LAB BLOOD ORDERABLES Final Re sult HISTORICAL RESULTS documented in this encounter Visit Diagnoses Not on filedocumented in this encounter
--- OUTSIDE RECORDS SUMMARY | 2024-10-30 11:55 | XMS_ITS | Encounter Summary ---
Author Organization [facility] Address [address] [place] [address] Care Team Providers Care Stone Processing Machine Operator Name Role Phone Eleuterio Cisneros MD Primary Care Provider Encounter Details Date Type Department Care Team (Late st Contact Info) Description 03/21/[address] [facility] Cardiology [address] [place] [address] ProviderKarol MD [address] [place], [place] [id number] Social History Tobacco Use Types Packs/Day Years Used Date Smoking Tobacco: Never Smokeless Tobacco: Never Alcohol Use Standard Drinks/Week Comments No 0 (1 standard drink = 0.6 oz pur e alcohol) Sex and Gender Information Value Date Recorded Sex Assigned at Not on file Legal Sex Male 10:54 PM DELI MANAGER Gender Identity Not on file Sexual Orientation Not on file documented as of this encounter Plan of Treatment Not on file documented as of this encounter Procedures Procedure Name Priority Date/Time Associated Diagnosis Comments LIPID PANEL Routine 06/04/2016 documented in this encounter Results * Lipid panel (06/04/2016) SCRIBED Cholesterol, Total 219 <200 EXTERNAL NON-INTERFACE D LAB SCRIBED HDL 46 >40 EXTERNAL NON-INTERFACE D LAB SCRIBED LDL 149 <100 EXTERNAL NON-INTERFACE D LAB SCRIBED Triglycerides 117 <150 EXTERNAL NON-INTERFACE D LAB Blood specimen (specimen) us Historical Provider LAB BLOOD ORDERABLES Edit ed Result - Final EXTERNAL NON-INTERFACED LAB [address] [place] [address] documented in this encounter Visit Diagnoses Not on filedocumented in this encounter Care Teams Stone Processing Machine Operator Relationship Specialty Start Date End Date Eleuterio Cisneros MD [address] [facility] [address] [place] [address] PCP - General 08/01/16 documented as of this encounter
--- OUTSIDE RECORDS SUMMARY | 2024-10-30 11:55 | XMS_ITS | Encounter Summary ---
Author Organization [facility] Facility Care Team Providers Care Roll On Man Name Role Phone Eleuterio Cisneros MD Primary Care Provider Encounter Details Date Type Department Care Team (Latest Contact Info) Description 08/17/2019 Travel Social History Tobacco Use Types Packs/Day Years Used Date Smoking Tobacco: Never Smokeless Tobacco: Never Alcohol Use Standard Drinks/Week Comments No 0 (1 standard drink = 0.6 oz pur e alcohol) Sex and Gender Information Value Date Recorded Sex Assigned at Not on file Legal Sex Male 10:54 PM SPECTACLE TRUER Gender Identity Not on file Sexual Orientation Not on file documented as of this encounter Plan of Treatment Not on file documented as of this encounter Visit Diagnoses Not on filedocumented in this encounter Care Teams Roll On Man Relationship Specialty Start Date End Date Eleuterio Cisneros MD [address] [facility] [address] [place] [address] PCP - General 08/01/16 documented as of this encounter
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
--- OUTSIDE RECORDS SUMMARY | 2024-10-30 11:55 | XMS_ITS | Encounter Summary ---
Author Organization [facility] Address [address] [place] [address] Care Team Providers Care Concrete Block Molder Name Role Phone Eleuterio Cisneros MD Primary Care Provider Reason for Visit * Reason Onset Date Comments Lipid Results 02/13/2021 Encounter Details Date Type Department Care Team (Late st Contact Info) Description 02/13/[address] 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 ??If so, lipids are poorly controlled. ??PCSK9 inhibitor therapy an option but could add Zetia 10mg daily at first and repeat FLP in 2 months with further recommendations to follow. ----- Message ----- From: Barbara Burgess MA Sent: 01/31/2021 ??11:11 AM CDT To: Chetan Armendariz MD Subject: Edit ? The scan below was edited by Barbara Burgess MA [[id number]] on 01/31/2021 at 11:11 AM; it is attached to the following: LIPID PANEL ??on 01/18/2021. 02/13/21-Left msg for pt to call office documented in this encounter Plan of Treatment Not on file documented as of this encounter Visit Diagnoses Not on filedocumented in this encounter Care Teams Concrete Block Molder Relationship Specialty Start Date End Date Eleuterio Cisneros MD [address] [facility] [address] [place] [address] PCP - General 08/01/16 documented as of this encounter
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
--- OUTSIDE RECORDS SUMMARY | 2024-10-30 11:56 | XMS_ITS | Encounter Summary ---
Author Organization [facility] Care Team Providers Care Pocket Secretary Assembler Name Role Phone Unavailable Primary Care Provider Unavailabl e Encounter Details Date Type Department Care Team (Late st Contact Info) Description 01/21/2009 - 01/21/2009 11:59 PM CDT Hospital Encounter [facility] Memo Hightower MD [address] [place] [address] Insomnia; Low back pain; Family history of ischemic heart disease Social History Tobacco Use Types Packs/Day Years Used Date Smoking Tobacco: Never Assessed Sex and Gender Information Value Date Recorded Sex Assigned at Not on file 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
--- OUTSIDE RECORDS SUMMARY | 2024-10-30 11:56 | XMS_ITS | Encounter Summary ---
Author Organization 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
--- OUTSIDE RECORDS SUMMARY | 2024-10-30 11:56 | XMS_ITS | Encounter Summary ---
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
--- OUTSIDE RECORDS SUMMARY | 2024-10-30 11:56 | XMS_ITS | Encounter Summary ---
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
== END 2024-10-23 06:40 | disposition home or self-care (01) ==
PROVIDERS: PCP Family Medicine; Visit Provider Psychiatry & Neurology Neurology
DX: R41.3 Other amnesia (principal); G40.109 Localization-related (focal) (partial) symptomatic epilepsy and epileptic syndromes with simple partial seizures, not intractable, without status epilepticus; Z87.828 Personal history of other (healed) physical injury and trauma
CPT/HCPCS: 95816

== ENCOUNTER 2025-02-03 07:07 | Outpatient (CLI) | payer OTHER, SELFPAY ==
--- OUTSIDE RECORDS SUMMARY | 2025-02-03 07:10 | XMS_ITS | Clinical Summary ---
Author Organization [facility] [address] Address [address] [place] [address] Care Team Providers Care Investigation Manager Name Role Phone Eleuterio Cisneros MD [...] artery disease of n ative artery of [place] heart with stable angina pectoris 08/01/2016 Overview (01/31/2017): Coronary artery disease involving [place] coronary artery of [place] heart with other form of angina pectoris Seizure disorder 05/25/2016 Overview (01/31/2017): Seizure disorder Dyspnea on [...] Site/Laterality Comments NOSE SURGERY 03/28/2022 - 04/26/2022 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
--- OUTSIDE RECORDS SUMMARY | 2025-02-03 07:10 | XMS_ITS | Referral Summary ---
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
[2025-02-03 08:20] LABS: Basophils Percent Auto 0.6 % (0.2-1.2); Eosinophils Absolute Auto 0.1 K/mm3 (0-0.3); Eosinophils Percent Auto 1.1 % (0-4.4); Hematocrit 43.3 % (42.0-52.0); Hemoglobin 14.7 g/dL (14.0-18.0); Immature Granulocyte Absolute 0.01 K/mm3 (0.00-0.031); Immature Granulocyte Percent A 0.2 % (0-0.5); Lymphocytes Absolute Auto 0.99 K/mm3 (0.9-3.2); Lymphocytes Percent Auto 18.5 % (18.3-44.2); Mean Corpuscular HGB Conc 33.9 g/dl (32-36); Mean Corpuscular Hemoglobin 30.2 pg (26-34); Mean Corpuscular Volume 88.9 fl (80-100); Mean Platelet Volume 9.6 fl (7.4-10.4); Monocytes Absolute Auto 0.3 K/mm3 (0.1-0.6); Monocytes Percent Auto 5.4 % (2.6-8.5); Neutrophils Percent Auto 74.2 % (45.5-73.1); Platelet Count Result 186 k/mm3 (150-375); Red Blood Count 4.87 M/mm3 (4.6-6.20); White Blood Count 5.4 K/mm3 (4.5-10.0)
[2025-02-03 08:31] LABS: Alanine Aminotransferase 29 U/L (6-50); Albumin Level 4.5 g/dL (3.5-5.1); Alkaline Phosphatase 55 U/L (38-126); Anion Gap 10 mmol/L (4-12); Aspartate Amino Transferase 24 U/L (17-59); Bilirubin,Total 1.2 mg/dL (0.2-1.3); Blood Urea Nitrogen 14 mg/dL (9-20); Calcium 9.2 mg/dL (8.4-10.2); Carbon Dioxide 25 mmol/L (22-30); Chloride 102 mmol/L (98-107); Cholesterol 177 mg/dL (0-200); Estimated Glomerular Filt Rate > 60; Glucose 94 mg/dL (65-110); HDL Direct 68 mg/dL; Potassium 4.2 mmol/L (3.4-5.0); Sodium 137 mmol/L (137-145); Triglycerides 39 mg/dL (<150)
[2025-02-03 08:43] LABS: LDL Cholesterol Direct 86 mg/dL
== END 2025-02-03 07:08 | disposition home or self-care (01) ==
PROVIDERS: PCP Family Medicine; Visit Provider Psychiatry & Neurology Neurology
DX: G40.909 Epilepsy, unspecified, not intractable, without status epilepticus (principal); I67.9 Cerebrovascular disease, unspecified
CPT/HCPCS: 36415; 80053; 80061; 85025

== ENCOUNTER 2025-02-11 09:20 | Outpatient (CLI) | payer OTHER, SELFPAY ==
--- NOTE | ~2025-02-11 | CT_ITS ---
Non-contrast CT scan of the Abdomen and Pelvis Clinical indication: Abdominal pain Technique: 2.5 mm axial scans were obtained through the abdomen and pelvis without intravenous or or al contrast. Dose reduction technique was used on this scan by utilizing automated exposure control a nd iterative reconstruction technique. The dose-length product (DLP) was 181.52 mGy-cm. COMPARISON: 12/05/2021 Findings: Images through the lung bases reveal no abnormalities. There is no evidence of renal or ureteral calculi. The kidneys and the ureters are nondilated. The liver, spleen, pancreas, gallbladder, and adrenals appear normal. There are atherosclerotic calcifications of the aorta. . There is no evidence of bowel obstruction. Images through the pelvis were performed. There is no evidence of ascites or lymphadenopathy. Urinary bladder unremarkable. Prostate gland is enlarged. Impression: No acute abnormality. Enlarged prostate gland. Reviewed, dictated and finalized at [facility]. Impression: No acute abnormality. Enlarged prostate gland.
== END 2025-02-11 09:21 | disposition home or self-care (01) ==
PROVIDERS: PCP Family Medicine; Visit Provider Physician Assistant
DX: R10.9 Unspecified abdominal pain (principal); N20.0 Calculus of kidney; N40.0 Benign prostatic hyperplasia without lower urinary tract symptoms
CPT/HCPCS: 74176

== ENCOUNTER 2025-02-24 00:10 | Day surgery (SDC) | payer OTHER, SELFPAY ==
[2025-02-18 08:38] VITALS: BMI 19.6
--- OUTSIDE RECORDS SUMMARY | 2025-02-24 00:13 | XMS_ITS | Clinical Summary ---
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
--- OUTSIDE RECORDS SUMMARY | 2025-02-24 00:13 | XMS_ITS | Referral Summary ---
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
[2025-02-24 06:15] VITALS: BP 121/95; PULSE 70; RESP 18; TEMP 36.8; O2SAT 99
[2025-02-24] MEDS: LACTATED RINGERS 1,000 ML 150 ML IV CONT (06:27)
--- NOTE | 2025-02-24 07:20 | P.PNAN_ITS ---
Anes - Initial Pre Proc Eval Procedure: Operation Date: 02/24/25 07:30 Proposed Procedures p Esophagogastroduodenoscopy - Steve Bermudez MD Date/Time: 02/24/25 07:20 Surgeon: Steve Bermudez MD Pre Op Diagnosis: Gastro-esophageal reflux disease without esophagit Patient Data Age: 55 Gender: M Height: 1.7 m Weight: 56.8 kg Last Vital Signs Temp 98.2 F 02/24/25 06:15 Pulse 70 02/24/25 06:15 Resp 18 02/24/25 06:15 BP 121/95 H 02/24/25 06:15 Pulse Ox 99 02/24/25 06:15 O2 Del Method Room Air 02/24/25 06:15 Allergies Allergy/AdvReac Type Severity Reaction Status Date / Time Tetanus Vaccines and Toxoid Allergy Intermediate arm Verified 02/24/25 06:14 redness/immobility/fever Home Medications ?Medication ?Instructions ?Recorded ?Confirmed ?Type amlodipine 2.5 mg tablet 2.5 mg PO DAILY 10/16/22 02/24/25 History atorvastatin 80 mg tablet 80 mg PO DAILY 10/16/22 02/24/25 History aspirin 81 mg tablet,delayed 81 mg PO DAILY 01/15/23 02/24/25 History release (Adult Low Dose Aspirin) levetiracetam 500 mg 2,000 mg (4 x 500 mg) PO QHS #120 01/25/25 02/24/25 Rx tablet,extended release 24 hr tabs (Keppra XR) sertraline 50 mg tablet 50 mg PO DAILY #90 tabs 01/25/25 02/24/25 Rx omeprazole 40 mg capsule,delayed 40 mg PO DAILY 6 weeks #42 caps 02/05/25 02/24/25 Rx release Patient hx anesthesia problems: none Family hx anesthesia problems: none Results Review: All pre-operative results and documents have been reviewed as part of the pre- operative evaluation. REPLACED BY [facility] Past Medical History Medical History Cerebrovascular disease Benign paroxysmal positional vertigo Surgical History Surgical History History of repair of left rotator cuff (~04/02/23) w/SAD History of fundoplication (~1999) History of nasal septoplasty (~03/2022) History of dental surgery Family History Family History Mother Family history of malignant neoplasm of breast in first degree relative Social History Social History (Updated 02/05/25 @ 07:52 by Karey Chan) Smoking status: Never smoker Second hand tobacco smoke exposure: No Alcohol intake: never Substance use: never Substance use type: does not use Do You Feel Safe in your Home?: Yes Lack of Transportation: No Lack of Food: Never True Current Housing: I Have Housing Concerned About Future Housing: No Difficulty Paying Gas/Electric Bills: No Difficulty Paying for Meds: No Currently Unemployed: No Education: Trade/Vocational Certificate Difficulty w/ Childcare or Family Care: No Living arrangements: with family Occupation/Education: occupation Gender identity (if verbalized by the patient): Male Sexual Orientation (if Verbalized by the Patient): Straight or Heterosexual Spiritual care concerns: No Anes - Eval Final PreProcedure Day of Procedure 02/24/25 07:20 Patient weight: normal Heart: regular rate and rhythm Lungs: clear to auscultation Airway: Mallampati scale class II Neurological: alert and oriented Last oral intake: >/= 8 hours ASA classification: III Emergent: no Anesthetic plan: proceed Anesthesia type and monitoring: general GIVS and standard monitoring Results Review: All pre-operative results and documents have been reviewed as part of the pre- operative evaluation. Informed Consent: The patient's anesthetic plan and its attendant risks and benefits were discussed with the patient/family/POA. Questions were solicited and answers provided to the satisfaction of the patient/family/POA.
--- NOTE | 2025-02-24 07:26 | PM.HPGS ---
History of Present Illness History of Present Illness Consent: Risks, benefits, and alternatives have been discussed and questions answered. Patient agrees to proceed with procedure. Chief complaint: Gastro-esophageal reflux disease without esophagit Narrative: Vinicius Fernandez is a 55 year old male with nausea and weight loss, had egd but years ago Review of Systems Review of Systems: All systems reviewed & are unremarkable except as noted in HPI and below PMFSH Past Medical History Medical History (Updated 02/24/25 @ 07:27 by Steve Bermudez MD) Nausea Cerebrovascular disease Benign paroxysmal positional vertigo Surgical History Surgical History History of repair of left rotator cuff (~04/02/23) w/SAD History of fundoplication (~1999) History of nasal septoplasty (~03/2022) History of dental surgery Family History Family History Mother Family history of malignant neoplasm of breast in first degree relative Social History Social History (Updated 02/05/25 @ 07:52 by Karey Chan) Smoking status: Never smoker Second hand tobacco smoke exposure: No Alcohol intake: never Substance use: never Substance use type: does not use Do You Feel Safe in your Home?: Yes Lack of Transportation: No Lack of Food: Never True Current Housing: I Have Housing Concerned About Future Housing: No Difficulty Paying Gas/Electric Bills: No Difficulty Paying for Meds: No Currently Unemployed: No Education: Trade/Vocational Certificate Difficulty w/ Childcare or Family Care: No Living arrangements: with family Occupation/Education: occupation Gender identity (if verbalized by the patient): Male Sexual Orientation (if Verbalized by the Patient): Straight or Heterosexual Spiritual care concerns: No Meds Home Medications and Allergies Home Medications ?Medication ?Instructions ?Recorded ?Confirmed ?Type amlodipine 2.5 mg tablet 2.5 mg PO DAILY 10/16/22 02/24/25 History atorvastatin 80 mg tablet 80 mg PO DAILY 10/16/22 02/24/25 History aspirin 81 mg tablet,delayed 81 mg PO DAILY 01/15/23 02/24/25 History release (Adult Low Dose Aspirin) levetiracetam 500 mg 2,000 mg (4 x 500 mg) PO QHS #120 01/25/25 02/24/25 Rx tablet,extended release 24 hr tabs (Keppra XR) sertraline 50 mg tablet 50 mg PO DAILY #90 tabs 01/25/25 02/24/25 Rx omeprazole 40 mg capsule,delayed 40 mg PO DAILY 6 weeks #42 caps 02/05/25 02/24/25 Rx release Allergies Allergy/AdvReac Type Severity Reaction Status Date / Time Tetanus Vaccines and Toxoid Allergy Intermediate arm Verified 02/24/25 06:14 redness/immobility/fever Vital Signs Vital Signs - 24 hr 02/24/25 06:15 Temperature 98.2 F Pulse Rate 70 Respiratory Rate 18 Blood Pressure 121/95 H Pulse Oximetry 99 Oxygen Delivery Room Air Exam Const: General: comfortable and no acute distress HENMT: Face/Nose/Sinus: Normal nares present Eyes: General: appearance normal, both eyes and all related structures Neck: Neck: no JVD Resp: Auscultation: clear to auscultation bilaterally Cardio: Rate: regular rate Rhythm: regular rhythm GI: Inspection: non-distended GI Palp: Yes Soft to palpation Skin: General skin exam: normal color Neuro: General: gait normal Speech: normal speech Extrem: General: normal to inspection Psych: Mental Status: mental status grossly normal Assessment and Plan Assessment and plan (1) Weight loss: Code(s): R63.4 - Abnormal weight loss Status: Acute Assessment and Plan: egd (2) History of Brittney fundoplication: Code(s): Z98.890 - Other specified postprocedural states Status: Acute (3) Nausea: Code(s): R11.0 - Nausea Status: Acute
[2025-02-24 07:32] VITALS: BP 98/62; PULSE 69; RESP 16; O2SAT 100
[2025-02-24 07:42] VITALS: BP 103/61; PULSE 68; RESP 16; O2SAT 100
[2025-02-24 07:52] VITALS: BP 102/66; PULSE 72; RESP 20; O2SAT 99
== END 2025-02-24 08:00 | disposition home or self-care (01) ==
PROVIDERS: PCP Family Medicine; Visit Provider Internal Medicine Gastroenterology
PROC: 0DJ08ZZ Inspection of Upper Intestinal Tract, Via Natural or Artificial Opening Endoscopic (ICD-10-PCS; CPT 43239; principal; 2025-02-24 07:30)
DX: K29.70 Gastritis, unspecified, without bleeding (principal)
CPT/HCPCS: 43239; 88305; J2704; J7120

== ENCOUNTER 2025-04-13 06:58 | Outpatient (CLI) | payer OTHER, SELFPAY ==
--- NOTE | ~2025-04-13 | XR_ITS ---
Right Hand Technique: PA, oblique, and lateral views were obtained. Clinical History: Fourth DIP joint pain Findings: No acute fracture or dislocation is seen. Osseous alignment is anatomic. Joint spaces are p reserved. Soft tissues are unremarkable. Impression: Unremarkable right hand. Reviewed, dictated and finalized at location . Impression: Unremarkable right hand.
== END 2025-04-13 06:59 | disposition home or self-care (01) ==
LOC: MICIMG 06:58
PROVIDERS: PCP Family Medicine; Visit Provider Student in an Organized Health Care Education/Training Program
DX: M79.641 Pain in right hand (principal)
CPT/HCPCS: 73120

== ENCOUNTER 2025-07-01 14:49 | Outpatient (CLI) | payer OTHER, SELFPAY ==
--- NOTE | ~2025-07-01 | US_ITS ---
Clinical History: G40.909 - Epilepsy, unspecified, not intractable, without... Examination: US carotid duplex BI Comparison: None Technique: Grayscale, color, duplex/spectral Doppler sonography carotid and vertebral arteries. Distal CCA and Peak ICA systolic velocities provided. Society of [employer]iologists in Ultrasound (SRU) consensus criteria utilized, indirectly assessing stenosis by velocities. Findings: Mild plaque Right side: CCA - 103 cm/sec. ICA - 106 cm/sec. ICA/CCA - 1.0 Left Side: CCA - 82 cm/sec. ICA - 103 cm/sec. ICA/CCA - 1.3 Normal antegrade flow measured bilateral vertebral arteries. IMPRESSION: 1. No hemodynamically significant ICA stenosis (i.e., if any stenosis, less than 50%). 2. Normal bilateral antegrade vertebral artery flow. Stenosis measured by Society of Radiologists in Ultrasound (SRU) criteria. Reviewed, dictated and finalized at location R. IMPRESSION: 1. No hemodynamically significant ICA stenosis (i.e., if any stenosis, less th an 50%). 2. Normal bilateral antegrade vertebral artery flow. Stenosis measured by Society of Radiologists in Ultrasound (SRU) criteria.
== END 2025-07-01 14:50 | disposition home or self-care (01) ==
PROVIDERS: PCP Family Medicine; Visit Provider Psychiatry & Neurology Neurology
DX: G40.909 Epilepsy, unspecified, not intractable, without status epilepticus (principal); R41.3 Other amnesia; I67.9 Cerebrovascular disease, unspecified
CPT/HCPCS: 93880